=== PATIENT | male | born 1950 | race Caucasian/White ===

== ENCOUNTER 2016-12-01 09:43 | Inpatient (IN) | payer BC, MEDICARE, OTHER ==
[2016-12-01] VITALS (11 sets, daily range): BP systolic 90–141; BP diastolic 50–96
[~2016-12-01] VITALS: Ht 165.1 cm; Wt 85.0 kg
[2016-12-01 10:18] LABS: BASO % 0 % (0-3); EOS % 0 % (0-3); HEMATOCRIT 41.2 % (39.0-53.0); HEMOGLOBIN 14.5 g/dL (13.0-17.5); LYMPH # 0.4 x10^3/uL (1.0-4.8); LYMPH % 3 % (24-48); MEAN CORPUSCULAR HEMOGLOBIN 32 pg (25-35); MEAN CORPUSCULAR HGB CONC 35 g/dL (31-37); MEAN CORPUSCULAR VOLUME 90 fL (79-100); MONO % 7 % (0-9); NEUT % 91 % (31-73); PLATELET COUNT 167 x10^3/uL (140-400); RED BLOOD COUNT 4.59 x10^6/uL (4.30-5.70); RED CELL DISTRIBUTION WIDTH 13.3 % (11.5-14.5); WHITE BLOOD COUNT 16.7 x10^3/uL (4.0-11.0)
--- NOTE | 2016-12-01 10:18 | RAD ---
CT of the head without contrast, 12/01/2016: History: Altered mental status The study is partially compromised by patient motion artifact. There is relative enlargement of the body of the right lateral ventricle. This is probably on a chronic ex vacuo basis due to a prior right cerebral insult. There is no shift of the midline structures. There is no evidence of acute intracranial hemorrhage or mass effect. A small calvarial defect is present in the left frontal region. This may be on a postsurgical or posttraumatic basis. A neoplastic etiology cannot be excluded. IMPRESSION: 1. Enlargement of the body of the right lateral ventricle which is probably chronic. 2. No acute intracranial abnormality is detected. 3. Left frontal calvarial lucency. Note: The findings were called to personnel in the [facility] ER at 10:15 AM on 12/01/2016.
--- NOTE | 2016-12-01 10:26 | RAD ---
Indication change in mental status. Suspect CVA. Protocol exam. A single view of the chest was obtained. No prior imaging of the head is available. Heart size is at the upper limits of normal. There is no congestive heart failure focal infiltrate significant pleural fluid collection or pneumothorax. The bony structures appear grossly intact. IMPRESSION: No acute or focal process seen in the chest
[2016-12-01] MEDS ORDERED: ONDANSETRON PF 4 MG/2 ML VIAL. IV ONE (10:30)
--- NOTE | 2016-12-01 10:31 | EKG ---
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
[2016-12-01 10:40] LABS: CREATININE 1.6 mg/dL (0.7-1.3); GFR 43.6; POTASSIUM 3.5 mmol/L (3.5-5.1)
[2016-12-01 10:47] LABS: INR 1.1 (0.8-1.1); PROTHROMBIN TIME PATIENT 13.7 SEC (11.7-14.0)
[2016-12-01 10:54] LABS: ALBUMIN 3.7 g/dL (3.4-5.0); DIRECT BILIRUBIN 0.3 mg/dL (0.0-0.2); TOTAL BILIRUBIN 1.9 mg/dL (0.2-1.0); TOTAL PROTEIN 7.2 g/dL (6.4-8.2)
[2016-12-01] MEDS ORDERED: IV NORMAL SALINE 1000ML BAG 1,000 ML IV ONE ×2 (11:00→13:00)
[2016-12-01 11:05] LABS: BILIRUBIN,URINE NEGATIVE (NEG); GLUCOSE,URINE NEGATIVE (NEG); NITRITE,URINE NEGATIVE (NEG); PH,URINE 5.5; PROTEIN,URINE NEGATIVE (NEG-TRACE); UROBILINOGEN,URINE 0.2 mg/dL (0.2 mg/dL)
[2016-12-01 11:12] LABS: BARBITURATES NEG (NEG); BENZODIAZEPINES NEG (NEG); CANNABINOIDS NEG (NEG); COCAINE NEG (NEG); METHADONE NEG (NEG); OPIATES NEG (NEG); PHENCYCLIDINE NEG (NEG)
[2016-12-01 11:14] LABS: ETHANOL, URINE NEG (NEG)
[2016-12-01 11:20] LABS: PLT ESTIMATE ADEQUATE (ADEQUATE)
[2016-12-01 11:27] LABS: BACTERIA,URINE 0 /HPF (0-FEW); RBC,URINE OCC /HPF (0-2); SQUAMOUS EPITHELIAL CELL,UR OCC /LPF; WBC,URINE 0 /HPF (0-4)
[2016-12-01 11:28] LABS: BASE EXCESS COOX -3 mmol/L (-3-3); CARBON MONOXIDE 0.8 % (0.0-1.9); HCO3 COOX 21 mmol/L (21-28); METHEMOGLOBIN 0.2 % (0.0-1.9); OXYHEMOGLOBIN 93.9 %; PCO2 COOX 33 mmHg (35-46); PH COOX 7.42 (7.35-7.45); PO2 COOX 77 mmHg (65-108); SAT O2 COOX 95 % (92-99); TOTAL HEMOGLOBIN 13.7 g/dL
[2016-12-01 11:31] LABS: FIO2 COOX 21
--- NOTE | 2016-12-01 11:51 | PHYS DOC ---
Past Medical History Past Medical History: COPD, High Cholesterol, Hypertension, Other Additional Past Medical Histor: polio Past Surgical History: Other Additional Past Surgical Histo: left arm tendon release from polio Alcohol Use: None Drug Use: None Adult General Chief Complaint Chief Complaint: ALTERED MENTAL STATUS HPI HPI Patient is a 66 year old male who presents by EMS for altered mental status. He spoke with his ex- at 8 PM yesterday and asked her for a ride to a colonoscopy today. She showed up at his home at 7 AM this morning and he did not answer his door. She then called EMS who had to break into his home. He was found down on the floor. She states he told her everything was well yesterday. She states he has left upper extremity contracture and weakness that are chronic from polio. She is also states he walks with a limp because his left lower extremity was also affected by polio. The patient does not contribute to history. Review of Systems Review of Systems Unable to obtain secondary to clinical status Current Medications Current Medications Current Medications Medications (Trade) Dose Ordered Sig/Bhumi Start Time Stop Time Status Last Admin Dose Admin Ondansetron HCl 4 mg 4 mg 1X ONCE 12/01/16 10:30 12/01/16 10:31 DC 12/01/16 10:55 4 MG Sodium Chloride (Iv Sodium Chloride 0.9% 1000ml Bag) 1,000 ml @ 1,000 mls/hr 1X ONCE 12/01/16 11:00 12/01/16 11:59 DC 12/01/16 11:02 1,000 MLS/HR Allergies Allergies Allergies Coded Allergies Type Severity Reaction Last Updated Verified Penicillins Allergy Intermediate 12/01/16 Yes Physical Exam Physical Exam Constitutional: Well developed, well nourished, no acute distress, non-toxic appearance. [] HENT: Normocephalic, atraumatic, bilateral TMs normal, oropharynx moist, no oral exudates, nose normal. [] Eyes: PERRLA, EOMI, conjunctiva normal, no discharge. [] Neck: Normal range of motion, no tenderness, supple. [] Cardiovascular: Heart rate regular rhythm [] Lungs & Thorax: Bilateral breath sounds clear to auscultation [] Abdomen: Bowel sounds normal, soft, no tenderness. [] Skin: Warm, dry, no erythema, no rash. [] Back: No tenderness, no CVA tenderness. [] Extremities: No tenderness, passive ROM intact other than some contracture of LUE that is chronic, no edema. [] Neurologic: Localizes pain, opens eyes to pain, some spontaneous movement of RUE and RLE, no voice [] Psychologic: Unable to assess secondary to clinical status. [] Current Patient Data Vital Signs Vital Signs Date Time Temp Pulse Resp B/P Pulse Ox O2 Delivery O2 Flow Rate FiO2 12/01/16 11:30 62 18 154/67 98 12/01/16 10:45 Room Air 12/01/16 09:43 97.8 97.8 Lab Values Laboratory Tests Test 12/01/16 10:00 12/01/16 10:40 12/01/16 10:47 White Blood Count 16.7x10^3/uL (4.0-11.0) H Red Blood Count 4.59x10^6/uL (4.30-5.70) Hemoglobin 14.5g/dL (13.0-17.5) Hematocrit 41.2% (39.0-53.0) Mean Corpuscular Volume 90fL (79-100) Mean Corpuscular Hemoglobin 32pg (25-35) Mean Corpuscular Hemoglobin Concent 35g/dL (31-37) Red Cell Distribution Width 13.3% (11.5-14.5) Platelet Count 167x10^3/uL (140-400) Neutrophils (%) (Auto) 91% (31-73) H Lymphocytes (%) (Auto) 3% (24-48) L Monocytes (%) (Auto) 7% (0-9) Eosinophils (%) (Auto) 0% (0-3) Basophils (%) (Auto) 0% (0-3) Neutrophils # (Auto) 15.1x10^3uL (1.8-7.7) H Lymphocytes # (Auto) 0.4x10^3/uL (1.0-4.8) L Monocytes # (Auto) 1.1x10^3/uL (0.0-1.1) Eosinophils # (Auto) 0.0x10^3/uL (0.0-0.7) Basophils # (Auto) 0.0x10^3/uL (0.0-0.2) Segmented Neutrophils % 84% (35-66) H Band Neutrophils % 4% (0-9) Lymphocytes % 4% (24-48) L Monocytes % 8% (0-10) Platelet Estimate Adequate (ADEQUATE) Prothrombin Time 13.7SEC (11.7-14.0) Prothrombin Time INR 1.1 (0.8-1.1) PTT 25SEC (24-38) Sodium Level 120mmol/L (136-145) *L Potassium Level 3.5mmol/L (3.5-5.1) Chloride Level 84mmol/L (98-107) L Carbon Dioxide Level 24mmol/L (21-32) Anion Gap 12 (6-14) Blood Urea Nitrogen 12mg/dL (8-26) Creatinine 1.6mg/dL (0.7-1.3) H Estimated GFR (Cockcroft-Gault) 43.6 Glucose Level 159mg/dL (70-99) H Serum Osmolality 256mOsm/Kg (279-304) L Lactic Acid Level 2.7mmol/L (0.4-2.0) H Calcium Level 9.0mg/dL (8.5-10.1) Magnesium Level 2.0mg/dL (1.8-2.4) Total Bilirubin 1.9mg/dL (0.2-1.0) H Direct Bilirubin 0.3mg/dL (0.0-0.2) H Aspartate Amino Transferase (AST) 248U/L (15-37) H Alanine Aminotransferase (ALT) 84U/L (16-63) H Alkaline Phosphatase 123U/L (46-116) H Ammonia 12mcmol/L (11-34) Creatine Kinase 74874Z/L (39-308) H Troponin I Quantitative < 0.017ng/mL (0.000-0.055) PX-Llq-N-Type Natriuretic Peptide 613pg/mL (0-124) H Total Protein 7.2g/dL (6.4-8.2) Albumin 3.7g/dL (3.4-5.0) Urine Collection Type U cath Urine Color Yellow Urine Clarity Clear Urine pH 5.5 Urine Specific [place] <=1.005 Urine Protein Negativemg/dL (NEG-TRACE) Urine Glucose (UA) Negativemg/dL (NEG) Urine Ketones (Stick) Negativemg/dL (NEG) Urine Blood Large (NEG) Urine Nitrite Negative (NEG) Urine Bilirubin Negative (NEG) Urine Urobilinogen Dipstick 0.2mg/dL (0.2 mg/dL) Urine Leukocyte Esterase Negative (NEG) Urine RBC Occ/HPF (0-2) Urine WBC 0/HPF (0-4) Urine Squamous Epithelial Cells Occ/LPF Urine Bacteria 0/HPF (0-FEW) Urine Mucus Slight/LPF Urine Opiates Screen Neg (NEG) Urine Methadone Screen Neg (NEG) Urine Barbiturates Neg (NEG) Urine Phencyclidine Screen Neg (NEG) Urine Amphetamine/Methamphetamine Neg (NEG) Urine Benzodiazepines Screen Neg (NEG) Urine Cocaine Screen Neg (NEG) Urine Cannabinoids Screen Neg (NEG) Urine Ethyl Alcohol Neg (NEG) O2 Saturation 95% (92-99) Arterial Blood pH 7.42 (7.35-7.45) Arterial Blood pCO2 at Patient Temp 33mmHg (35-46) L Arterial Blood pO2 at Patient Temp 77mmHg (65-108) Arterial Blood HCO3 21mmol/L (21-28) Arterial Blood Base Excess -3mmol/L (-3-3) Oxyhemoglobin 93.9% Methemoglobin 0.2% (0.0-1.9) Carbon Monoxide, Quantitative 0.8% (0.0-1.9) FiO2 21 Laboratory Tests 12/01/16 10:00 Laboratory Tests 12/01/16 10:00 EKG EKG EKG as interpreted by me as sinus rhythm with right bundle branch block, no ST- T changes, OK 176, QTC 471, no ectopy Radiology/Procedures Radiology/Procedures Chest xray as interpreted by me with no acute cardiopulmonary disease process Head CT without contrast IMPRESSION: 1. Enlargement of the body of the right lateral ventricle which is probably chronic. 2. No acute intracranial abnormality is detected. 3. Left frontal calvarial lucency. Note: The findings were called to personnel in the [facility] ER at 10:15 AM on 12/01/2016. DICTATED and SIGNED BY: NICK ROGERS MD DATE: 12/01/16 4245 Course & Med Decision Making Course & Med Decision Making Pertinent Labs and Imaging studies reviewed. (See chart for details) He has severe altered mental status with a GCS of 8. Discussed his condition with his ex-, who states is his DPOA. She states he would not want to be intubated or have CPR, but would like everything to be done short of that. His laboratory workup reveals leukocytosis and hyponatremia with lactic acidosis and rhabdomyolysis. ABG is unremarkable. Suspect acute hyponatremia in the setting of bowel prep for colonoscopy. Normal saline replacement started as I think he is hypovolemic. Will admit to the ICU for close monitoring of altered mental status and sodium. Discussed care with Dr. Thomson, who will admit. Dragon Disclaimer Dragon Disclaimer This electronic medical record was generated, in whole or in part, using a voice recognition dictation system. Departure Departure Impression: Primary Impression: Altered mental status Additional Impressions: Hyponatremia Lactic acidosis Rhabdomyolysis Disposition: ADMITTED INPATIENT Condition: CRITICAL Referrals: TITO BARRERA MD (PCP) Problem Qualifiers Primary Impression: Altered mental status Altered mental status type: coma Coma depth: [place] coma 9-12 Coma timing : in the field (EMT or ambulance) Qualified Code: R40.2421 - Sonya coma scale score 9-12, in the field [EMT or ambulance] Additional Impressions: Rhabdomyolysis Rhabdomyolysis type: non-traumatic Qualified Code: M62.82 - Rhabdomyolysis Karri STEVENSON MD Dec 01, 2016 11:51
[2016-12-01] MEDS ORDERED: IV NORMAL SALINE 1000ML BAG 1,000 ML IV SCH (12:09)
[2016-12-01] MEDS ORDERED: ONDANSETRON PF 4 MG/2 ML VIAL. IV PRN (12:15)
--- NOTE | 2016-12-01 13:40 | PDOC1 ---
History and Physical Date of Admission Date of Admission DATE: 12/01/16 TIME: 13:32 Identification/Chief Complaint Chief Complaint delirium Source Source: Caregiver, Chart review History of Present Illness History of Present Illness rMr. aceves is a 66 yo old male admit [facility] ER, brought by EMS for altered mental status. His ride arrive to pick him up for sched colonoscopy this AM, he was not arouseable, EMS called He is not following commands in the ER, he does protect is airway and reacts to verbal and painful, but not purposeful He has chronic contractions and he has left upper extremity weakness that are chronic from polio. some chronic leg weakness Past Medical History Past Medical History polio Family History Family History: Family History Unknown Current Problem List Problem List Problems Medical Problems: (1) Altered mental status Status: Acute (2) Hyponatremia Status: Acute (3) Lactic acidosis Status: Acute (4) Mental status change Status: Acute (5) Rhabdomyolysis Status: Acute Problems: Current Medications Current Medications Current Medications Ondansetron HCl 4 mg 4 mg 1X ONCE IV Last administered on 12/01/16 10:55; Start 12/01/16 at 10:30; Stop 12/01/16 at 10:31; Status DC Sodium Chloride (Iv Sodium Chloride 0.9% 1000ml Bag) 1,000 ml @ 1,000 mls/hr 1X ONCE IV Last administered on 12/01/16 11:02; Start 12/01/16 at 11:00; Stop 12/01/16 at 11:59; Status DC Ondansetron HCl 4 mg 4 mg PRN Q8HRS PRN IV NAUSEA/VOMITING; Start 12/01/16 at 12 :15; Stop 12/02/16 at 12:14 Sodium Chloride 1,000 ml @ 150 mls/hr Q6H40M IV ; Start 12/01/16 at 12:09; Stop 12/02/16 at 12:08 Sodium Chloride (Iv Sodium Chloride 0.9% 1000ml Bag) 1,000 ml @ 1,000 mls/hr 1X ONCE IV Last administered on 12/01/16 13:00; Start 12/01/16 at 13:00; Stop 12/01/16 at 13:59 Allergies Allergies: Coded Allergies: Penicillins (Verified Allergy, Intermediate, 12/01/16) ROS Review of System unable, not verbal Physical Exam General: mild distress, Other (not following commands) HEENT: Atraumatic, PERRLA Lungs: Normal air movement Heart: no murmurs Breasts: No erythema or tenderness Abdomen: Normal bowel sounds, Soft, No tenderness (obese) Rectal Exam: not examined Extremities: No clubbing Skin: No rashes, No breakdown, Other (appears dry) Neuro: Normal speech, Normal tone Psych/Mental Status: Other (obtunded, making mastication movements with jaw) Vitals Vitals Vital Signs Date Time Temp Pulse Resp B/P Pulse Ox O2 Delivery O2 Flow Rate FiO2 12/01/16 12:00 62 19 133/67 98 Room Air 12/01/16 09:43 97.8 97.8 Labs Labs Laboratory Tests Test 12/01/16 10:00 12/01/16 10:40 12/01/16 10:47 White Blood Count 16.7x10^3/uL (4.0-11.0) Red Blood Count 4.59x10^6/uL (4.30-5.70) Hemoglobin 14.5g/dL (13.0-17.5) Hematocrit 41.2% (39.0-53.0) Mean Corpuscular Volume 90fL (79-100) Mean Corpuscular Hemoglobin 32pg (25-35) Mean Corpuscular Hemoglobin Concent 35g/dL (31-37) Red Cell Distribution Width 13.3% (11.5-14.5) Platelet Count 167x10^3/uL (140-400) Neutrophils (%) (Auto) 91% (31-73) Lymphocytes (%) (Auto) 3% (24-48) Monocytes (%) (Auto) 7% (0-9) Eosinophils (%) (Auto) 0% (0-3) Basophils (%) (Auto) 0% (0-3) Neutrophils # (Auto) 15.1x10^3uL (1.8-7.7) Lymphocytes # (Auto) 0.4x10^3/uL (1.0-4.8) Monocytes # (Auto) 1.1x10^3/uL (0.0-1.1) Eosinophils # (Auto) 0.0x10^3/uL (0.0-0.7) Basophils # (Auto) 0.0x10^3/uL (0.0-0.2) Segmented Neutrophils % 84% (35-66) Band Neutrophils % 4% (0-9) Lymphocytes % 4% (24-48) Monocytes % 8% (0-10) Platelet Estimate Adequate (ADEQUATE) Prothrombin Time 13.7SEC (11.7-14.0) Prothromb Time International Ratio 1.1 (0.8-1.1) Activated Partial Thromboplast Time 25SEC (24-38) Sodium Level 120mmol/L (136-145) Potassium Level 3.5mmol/L (3.5-5.1) Chloride Level 84mmol/L (98-107) Carbon Dioxide Level 24mmol/L (21-32) Anion Gap 12 (6-14) Blood Urea Nitrogen 12mg/dL (8-26) Creatinine 1.6mg/dL (0.7-1.3) Estimated GFR (Cockcroft-Gault) 43.6 Glucose Level 159mg/dL (70-99) Lactic Acid Level 2.7mmol/L (0.4-2.0) Calcium Level 9.0mg/dL (8.5-10.1) Magnesium Level 2.0mg/dL (1.8-2.4) Total Bilirubin 1.9mg/dL (0.2-1.0) Direct Bilirubin 0.3mg/dL (0.0-0.2) Aspartate Amino Transf (AST/SGOT) 248U/L (15-37) Alanine Aminotransferase (ALT/SGPT) 84U/L (16-63) Alkaline Phosphatase 123U/L (46-116) Ammonia 12mcmol/L (11-34) Creatine Kinase 98761Z/L (39-308) Troponin I Quantitative < 0.017ng/mL (0.000-0.055) LZ-Opq-T-Type Natriuretic Peptide 613pg/mL (0-124) Total Protein 7.2g/dL (6.4-8.2) Albumin 3.7g/dL (3.4-5.0) Urine Collection Type U cath Urine Color Yellow Urine Clarity Clear Urine pH 5.5 Urine Specific [place] <=1.005 Urine Protein Negativemg/dL (NEG-TRACE) Urine Glucose (UA) Negativemg/dL (NEG) Urine Ketones (Stick) Negativemg/dL (NEG) Urine Blood Large (NEG) Urine Nitrite Negative (NEG) Urine Bilirubin Negative (NEG) Urine Urobilinogen Dipstick 0.2mg/dL (0.2 mg/dL) Urine Leukocyte Esterase Negative (NEG) Urine RBC Occ/HPF (0-2) Urine WBC 0/HPF (0-4) Urine Squamous Epithelial Cells Occ/LPF Urine Bacteria 0/HPF (0-FEW) Urine Mucus Slight/LPF Urine Opiates Screen Neg (NEG) Urine Methadone Screen Neg (NEG) Urine Barbiturates Neg (NEG) Urine Phencyclidine Screen Neg (NEG) Urine Amphetamine/Methamphetamine Neg (NEG) Urine Benzodiazepines Screen Neg (NEG) Urine Cocaine Screen Neg (NEG) Urine Cannabinoids Screen Neg (NEG) Urine Ethyl Alcohol Neg (NEG) O2 Saturation 95% (92-99) Arterial Blood pH 7.42 (7.35-7.45) Arterial Blood pCO2 at Patient Temp 33mmHg (35-46) Arterial Blood pO2 at Patient Temp 77mmHg (65-108) Arterial Blood HCO3 21mmol/L (21-28) Arterial Blood Base Excess -3mmol/L (-3-3) Oxyhemoglobin 93.9% Methemoglobin 0.2% (0.0-1.9) Carbon Monoxide, Quantitative 0.8% (0.0-1.9) FiO2 21 Laboratory Tests Test 12/01/16 10:00 12/01/16 10:40 12/01/16 10:47 White Blood Count 16.7x10^3/uL (4.0-11.0) Red Blood Count 4.59x10^6/uL (4.30-5.70) Hemoglobin 14.5g/dL (13.0-17.5) Hematocrit 41.2% (39.0-53.0) Mean Corpuscular Volume 90fL (79-100) Mean Corpuscular Hemoglobin 32pg (25-35) Mean Corpuscular Hemoglobin Concent 35g/dL (31-37) Red Cell Distribution Width 13.3% (11.5-14.5) Platelet Count 167x10^3/uL (140-400) Neutrophils (%) (Auto) 91% (31-73) Lymphocytes (%) (Auto) 3% (24-48) Monocytes (%) (Auto) 7% (0-9) Eosinophils (%) (Auto) 0% (0-3) Basophils (%) (Auto) 0% (0-3) Neutrophils # (Auto) 15.1x10^3uL (1.8-7.7) Lymphocytes # (Auto) 0.4x10^3/uL (1.0-4.8) Monocytes # (Auto) 1.1x10^3/uL (0.0-1.1) Eosinophils # (Auto) 0.0x10^3/uL (0.0-0.7) Basophils # (Auto) 0.0x10^3/uL (0.0-0.2) Segmented Neutrophils % 84% (35-66) Band Neutrophils % 4% (0-9) Lymphocytes % 4% (24-48) Monocytes % 8% (0-10) Platelet Estimate Adequate (ADEQUATE) Prothrombin Time 13.7SEC (11.7-14.0) Prothromb Time International Ratio 1.1 (0.8-1.1) Activated Partial Thromboplast Time 25SEC (24-38) Sodium Level 120mmol/L (136-145) Potassium Level 3.5mmol/L (3.5-5.1) Chloride Level 84mmol/L (98-107) Carbon Dioxide Level 24mmol/L (21-32) Anion Gap 12 (6-14) Blood Urea Nitrogen 12mg/dL (8-26) Creatinine 1.6mg/dL (0.7-1.3) Estimated GFR (Cockcroft-Gault) 43.6 Glucose Level 159mg/dL (70-99) Lactic Acid Level 2.7mmol/L (0.4-2.0) Calcium Level 9.0mg/dL (8.5-10.1) Magnesium Level 2.0mg/dL (1.8-2.4) Total Bilirubin 1.9mg/dL (0.2-1.0) Direct Bilirubin 0.3mg/dL (0.0-0.2) Aspartate Amino Transf (AST/SGOT) 248U/L (15-37) Alanine Aminotransferase (ALT/SGPT) 84U/L (16-63) Alkaline Phosphatase 123U/L (46-116) Ammonia 12mcmol/L (11-34) Creatine Kinase 72901A/L (39-308) Troponin I Quantitative < 0.017ng/mL (0.000-0.055) ZC-Acp-R-Type Natriuretic Peptide 613pg/mL (0-124) Total Protein 7.2g/dL (6.4-8.2) Albumin 3.7g/dL (3.4-5.0) Urine Collection Type U cath Urine Color Yellow Urine Clarity Clear Urine pH 5.5 Urine Specific [place] <=1.005 Urine Protein Negativemg/dL (NEG-TRACE) Urine Glucose (UA) Negativemg/dL (NEG) Urine Ketones (Stick) Negativemg/dL (NEG) Urine Blood Large (NEG) Urine Nitrite Negative (NEG) Urine Bilirubin Negative (NEG) Urine Urobilinogen Dipstick 0.2mg/dL (0.2 mg/dL) Urine Leukocyte Esterase Negative (NEG) Urine RBC Occ/HPF (0-2) Urine WBC 0/HPF (0-4) Urine Squamous Epithelial Cells Occ/LPF Urine Bacteria 0/HPF (0-FEW) Urine Mucus Slight/LPF Urine Opiates Screen Neg (NEG) Urine Methadone Screen Neg (NEG) Urine Barbiturates Neg (NEG) Urine Phencyclidine Screen Neg (NEG) Urine Amphetamine/Methamphetamine Neg (NEG) Urine Benzodiazepines Screen Neg (NEG) Urine Cocaine Screen Neg (NEG) Urine Cannabinoids Screen Neg (NEG) Urine Ethyl Alcohol Neg (NEG) O2 Saturation 95% (92-99) Arterial Blood pH 7.42 (7.35-7.45) Arterial Blood pCO2 at Patient Temp 33mmHg (35-46) Arterial Blood pO2 at Patient Temp 77mmHg (65-108) Arterial Blood HCO3 21mmol/L (21-28) Arterial Blood Base Excess -3mmol/L (-3-3) Oxyhemoglobin 93.9% Methemoglobin 0.2% (0.0-1.9) Carbon Monoxide, Quantitative 0.8% (0.0-1.9) FiO2 21 VTE Prophylaxis Ordered VTE Prophylaxis Devices: No VTE Pharmacological Prophylaxi: Yes Assessment/Plan Assessment/Plan Altered mental status, s/.p GI prep for screening colonoscopy, appears dry on exam ICU admit, consult neuro hyponatremia, hypovolemic, NS given, repeat labs quickly check Urine osm consult Renal Rhabdomyolysis Acute renal failure or CKD 3 obesity AMAN GONZALEZ MD Dec 01, 2016 13:39
[2016-12-01] MEDS ORDERED: MAGNESIUM SULFATE 2GM 50 ML IV PRN ×2 (13:45→15:00)
[2016-12-01] MEDS ORDERED: IV NORMAL SALINE 500ML BAG 500 ML IV PRN (14:00)
--- NOTE | 2016-12-01 14:07 | ACF ---
Admission Forms Criteria MENTAL STATUS CHANGE Clinical Indications for Inpatient Care (Place 'X' for any and all applicable criteria): Ongoing inpatient care may be needed for ANY ONE of the following(1)(2)(3)(5)(6) : [X]I. Suspected serious etiology (eg, medical disorder, DRAW FRAME TENDER event) of mental status change [ ]II. Danger to self or others not manageable at lower level of care [ ]III. Grave disability (eg, inability to perform self care necessary at lower level of care) [ ]IV. Agitation or inappropriate behavior interfering with care for primary condition (eg, attempting to discontinue lines or drains prematurely, unable to cooperate with respiratory care) [ ]V. Delirium [A] [D][E] as described by ANY ONE of the following(26): [ ]a) Delirium due to alcohol or sedative [F] withdrawal [ ]b) Delirium of uncertain etiology that has not responded to appropriate empiric treatment [ ]c) Delirium that prevents performance of a life-sustaining function (eg, feeding or hydrating oneself) [ ]. General contraindications and/or Inappropriate clinical situations for Observational Care in patients with Mental Status Change, when ANY ONE of the following is required: [ ]a) Prediction of prolongation of LOS based on ANY ONE of the following may be considered as a contraindication for observational care 2, 3, 4, 5, 6, 7, 8, 9, 10, 11 [ ]i) Age > 65 yrs. [ ]ii) Patient arriving by ambulance [ ]iii) Patient with high acuity [ ]iv) Patient requiring vital sign monitoring [ ]v) Patient on IV medication [ ]b) Systolic blood pressures 180mmHg 3,12 [ ]c) Patient with altered mental status including delirium and other alteration of consciousness, (3) [ ]d) Patient whose discharge disposition will be to a chcf home or rehabilitation home should not be managed in Emergency Department Observation Unit. CMS rule requires 3 days hospital stay before such placement.3,13 [ ]e) Patient with failure to thrive due to broad array of etiologies 3,16,17 [ ]f) Inability to ambulate 3,14 Extended stay beyond goal length of stay for the primary condition may be needed until ALL of the following are present(3)(5): [ ]a) Underlying medical etiology of mental status change is absent, or has been established and adequately treated [ ]b) Danger to self or others is absent or manageable at lower level of care. [ ]c) Behavior crisis management, including physical or chemical restraints, is not required or available at lower level of car [ ]d) Substance or alcohol withdrawal is absent or manageable at lower level of care. [ ]e) Behavioral symptoms (eg, agitation, somnolence, inappropriate behavior) are absent, or are manageable at lower level of care. The original [facility] content created by [facility] has been revised. The portions of the content which have been revised are identified through the use of italic text or in bold, and [facility] has neither reviewed nor approved the modified material. All other unmodified content is copyright [facility]. Please see references footnoted in the original [facility] edition 2016 Admission Criteria Met?: Yes TIM QUIROZ Dec 01, 2016 14:07
[2016-12-01 14:33] LABS: CREATININE 1.1 mg/dL (0.7-1.3); GFR 67.2; POTASSIUM 3.4 mmol/L (3.5-5.1)
[2016-12-01] MEDS: IV 1/2 NORMAL SALINE 1,000 ML IV SCH (15:00)
[2016-12-01] MEDS ORDERED: POTASSIUM CHLORIDE 20MEQ 50 ML IV PRN ×2 (15:00)
--- NOTE | 2016-12-01 15:12 | PDOC2 ---
DATE OF CONSULT Date of Consult 12/01/2016 REASON FOR CONSULT Reason for Consult Sev HypoNatremia REFERRING PHYSICIAN Referring Provider Dr Thomson CHIEF COMPLAINT Chief Complaint Problems Medical Problems: (1) Altered mental status Status: Acute (2) Hyponatremia Status: Acute (3) Lactic acidosis Status: Acute (4) Mental status change Status: Acute (5) Rhabdomyolysis Status: Acute SOURCE Source EMR HPI HPI as dictated CURRENT MEDICATIONS Current Meds Current Medications Medications (Trade) Dose Ordered Sig/Bhumi Route PRN Reason Start Time Stop Time Status Last Admin Dose Admin Ondansetron HCl 4 mg 4 mg 1X ONCE IV 12/01/16 10:30 12/01/16 10:31 DC 12/01/16 10:55 Sodium Chloride 1,000 ml @ 1,000 mls/hr 1X ONCE IV 12/01/16 11:00 12/01/16 11:59 DC 12/01/16 11:02 Sodium Chloride (Iv Sodium Chloride 0.9% 1000ml Bag) 1,000 ml @ 1,000 mls/hr 1X ONCE IV 12/01/16 13:00 12/01/16 13:59 DC 12/01/16 13:00 Home Meds reviewed as documented ALLERGIES Allergies: Coded Allergies: Penicillins (Verified Allergy, Intermediate, 12/01/16) ROS ROS Unable to obtian duet o AMS VITAL SIGNS Vital Signs VS - Last 72 Hours, by Label Date Time Temp Pulse Resp B/P Pulse Ox O2 Delivery O2 Flow Rate FiO2 12/01/16 12:00 62 19 133/67 98 Room Air 12/01/16 11:45 60 16 136/71 97 12/01/16 11:30 62 18 154/67 98 12/01/16 11:15 60 18 126/78 99 12/01/16 11:00 56 16 122/61 98 12/01/16 10:45 56 18 122/71 99 Room Air 12/01/16 10:30 60 18 129/74 98 12/01/16 10:15 60 20 126/70 99 12/01/16 10:00 58 18 122/64 96 Room Air 12/01/16 09:43 97.8 60 18 132/63 99 Room Air 97.8 PHYSICAL EXAM Physical Exam General Appearance: Sleepy and unable to arouse Oriented x 0 In no Distress Eyes: VIsion Unchanged Conjunctiva Normal EN: No EN Drainage Mucous Memb. dryish Neck: no JVD no JVP Supple no Thyromegaly CVS: S1 S2 no Murmur No Gallop No Rub no Edema Resp: no Rales no Rhonchi no Acc. Muscle use GI: BAS +ve NO Bruit Non Tender Non Distended : no CVA tenderness; no Suprapubic Tenderness SKIN: ? Ch Rashes Breast Exam deferred Mu.Sk: Adequate ROM no Muscle Atrophy Heme: Unable to palpate Obvious LAD no palp Splenomegaly NEURO: ? Left Upper ext contracture, AMS, No Asterixis, Psych: Unable to assess duet o AMS ASSESSMENT/PLAN Assessment/Plan Sev (presumably Acute) Hyponatremia - associated with bowel PreP? ; Home list of meds NA currently Polydipsia cannot be ruled out. HypoKalemia - replacement per sliding scale Rhabdomyolysis - suspect due to Sz (from Hypnatremia) AMS - ? Post-ictal Adrienne due to Rhabdo - now better already LABS Labs: Laboratory Tests Test 12/01/16 10:00 12/01/16 10:40 12/01/16 10:47 12/01/16 13:55 White Blood Count 16.7x10^3/uL (4.0-11.0) Red Blood Count 4.59x10^6/uL (4.30-5.70) Hemoglobin 14.5g/dL (13.0-17.5) Hematocrit 41.2% (39.0-53.0) Mean Corpuscular Volume 90fL (79-100) Mean Corpuscular Hemoglobin 32pg (25-35) Mean Corpuscular Hemoglobin Concent 35g/dL (31-37) Red Cell Distribution Width 13.3% (11.5-14.5) Platelet Count 167x10^3/uL (140-400) Neutrophils (%) (Auto) 91% (31-73) Lymphocytes (%) (Auto) 3% (24-48) Monocytes (%) (Auto) 7% (0-9) Eosinophils (%) (Auto) 0% (0-3) Basophils (%) (Auto) 0% (0-3) Neutrophils # (Auto) 15.1x10^3uL (1.8-7.7) Lymphocytes # (Auto) 0.4x10^3/uL (1.0-4.8) Monocytes # (Auto) 1.1x10^3/uL (0.0-1.1) Eosinophils # (Auto) 0.0x10^3/uL (0.0-0.7) Basophils # (Auto) 0.0x10^3/uL (0.0-0.2) Segmented Neutrophils % 84% (35-66) Band Neutrophils % 4% (0-9) Lymphocytes % 4% (24-48) Monocytes % 8% (0-10) Platelet Estimate Adequate (ADEQUATE) Prothrombin Time 13.7SEC (11.7-14.0) Prothromb Time International Ratio 1.1 (0.8-1.1) Activated Partial Thromboplast Time 25SEC (24-38) Sodium Level 120mmol/L (136-145) 128mmol/L (136-145) Chloride Level 84mmol/L (98-107) 94mmol/L (98-107) Carbon Dioxide Level 24mmol/L (21-32) 24mmol/L (21-32) Anion Gap 12 (6-14) 10 (6-14) Blood Urea Nitrogen 12mg/dL (8-26) 12mg/dL (8-26) Estimated GFR (Cockcroft-Gault) 43.6 67.2 Glucose Level 159mg/dL (70-99) 126mg/dL (70-99) Lactic Acid Level 2.7mmol/L (0.4-2.0) 1.2mmol/L (0.4-2.0) Calcium Level 9.0mg/dL (8.5-10.1) 8.0mg/dL (8.5-10.1) Total Bilirubin 1.9mg/dL (0.2-1.0) Direct Bilirubin 0.3mg/dL (0.0-0.2) Aspartate Amino Transf (AST/SGOT) 248U/L (15-37) Alkaline Phosphatase 123U/L (46-116) Ammonia 12mcmol/L (11-34) Creatine Kinase 15443U/L (39-308) Troponin I Quantitative < 0.017ng/mL (0.000-0.055) Total Protein 7.2g/dL (6.4-8.2) Albumin 3.7g/dL (3.4-5.0) Urine Collection Type U cath Urine Color Yellow Urine Clarity Clear Urine pH 5.5 Urine Specific [place] <=1.005 Urine Protein Negativemg/dL (NEG-TRACE) Urine Glucose (UA) Negativemg/dL (NEG) Urine Ketones (Stick) Negativemg/dL (NEG) Urine Blood Large (NEG) Urine Nitrite Negative (NEG) Urine Bilirubin Negative (NEG) Urine Urobilinogen Dipstick 0.2mg/dL (0.2 mg/dL) Urine Leukocyte Esterase Negative (NEG) Urine RBC Occ/HPF (0-2) Urine WBC 0/HPF (0-4) Urine Squamous Epithelial Cells Occ/LPF Urine Bacteria 0/HPF (0-FEW) Urine Mucus Slight/LPF Urine Opiates Screen Neg (NEG) Urine Methadone Screen Neg (NEG) Urine Barbiturates Neg (NEG) Urine Phencyclidine Screen Neg (NEG) Urine Amphetamine/Methamphetamine Neg (NEG) Urine Benzodiazepines Screen Neg (NEG) Urine Cocaine Screen Neg (NEG) Urine Cannabinoids Screen Neg (NEG) Urine Ethyl Alcohol Neg (NEG) O2 Saturation 95% (92-99) Arterial Blood pH 7.42 (7.35-7.45) Arterial Blood pCO2 at Patient Temp 33mmHg (35-46) Arterial Blood pO2 at Patient Temp 77mmHg (65-108) Arterial Blood HCO3 21mmol/L (21-28) Arterial Blood Base Excess -3mmol/L (-3-3) Oxyhemoglobin 93.9% Methemoglobin 0.2% (0.0-1.9) Carbon Monoxide, Quantitative 0.8% (0.0-1.9) FiO2 21 Uric Acid 7.0mg/dL (3.5-7.2) JAYSON PATEL MD Dec 01, 2016 15:12
[2016-12-01] MEDS: IV DEXTROSE 5% 1,000 ML IV SCH ×2 (15:15→23:52)
[2016-12-01] MEDS: ENOXAPARIN 40 MG/0.4 ML DISP.SYRIN. SQ SCH (15:51)
[2016-12-01] MEDS: POTASSIUM CHLORIDE 10MEQ 100 ML IV SCH ×2 (15:51→17:09)
[2016-12-01] MEDS ORDERED: LORAZEPAM 1 MG TABLET. PO PRN (18:15)
[2016-12-01] MEDS ORDERED: LORAZEPAM 2 MG/ML VIAL IV PRN (18:15)
[2016-12-01] MEDS ORDERED: DESMOPRESSIN 4 MCG/ML AMPUL. IV SCH (21:30)
[2016-12-02] VITALS (16 sets, daily range): BP systolic 96–140; BP diastolic 50–78
[2016-12-02] MEDS: IV 1/2 NORMAL SALINE 1,000 ML IV SCH ×3 (04:20→19:08)
[2016-12-02 04:43] LABS: CALCIUM 8.4 mg/dL (8.5-10.1); CREATININE 0.8 mg/dL (0.7-1.3); PHOSPHORUS 2.3 mg/dL (2.6-4.7); POTASSIUM 3.7 mmol/L (3.5-5.1)
[2016-12-02 04:45] LABS: ALBUMIN 3.1 g/dL (3.4-5.0); DIRECT BILIRUBIN 0.3 mg/dL (0.0-0.2); TOTAL BILIRUBIN 0.9 mg/dL (0.2-1.0); TOTAL PROTEIN 5.6 g/dL (6.4-8.2)
[2016-12-02 04:54] LABS: BASO % 0 % (0-3); EOS % 0 % (0-3); HEMATOCRIT 37.3 % (39.0-53.0); LYMPH # 0.6 x10^3/uL (1.0-4.8); LYMPH % 5 % (24-48); MEAN CORPUSCULAR HEMOGLOBIN 32 pg (25-35); MEAN CORPUSCULAR HGB CONC 35 g/dL (31-37); MEAN CORPUSCULAR VOLUME 92 fL (79-100); MONO % 9 % (0-9); NEUT % 86 % (31-73); PLATELET COUNT 146 x10^3/uL (140-400); RED BLOOD COUNT 4.06 x10^6/uL (4.30-5.70); RED CELL DISTRIBUTION WIDTH 13.4 % (11.5-14.5); WHITE BLOOD COUNT 10.9 x10^3/uL (4.0-11.0)
[2016-12-02 04:58] LABS: MAGNESIUM 2.2 mg/dL (1.8-2.4)
--- NOTE | 2016-12-02 07:55 | CONS ---
DATE OF CONSULTATION: 12/01/2016 PRIMARY PHYSICIAN: Dr. Thomson. REASON FOR CONSULTATION: Hyponatremia. HISTORY OF PRESENT ILLNESS: The patient is a 66-year-old gentleman, who was preparing for a colonoscopy at home. His ex- was supposed to take him to the appointment. When she arrived at home at 7:00 a.m. this morning, he did not answer his door. She then called EMS, who broke into his home, found him down on the floor, and he was transported here. At baseline, he is known to walk with a limp, with weakness/contractures on his left side upper and lower extremities. At presentation here, he was noted to have a sodium of 120, a potassium of 3.5, creatinine 1.6, and a CK of almost 13,000. He was given 2-1/2 liters of normal saline as reported to me. Blood pressures were good. He remains altered at this time. He is now in the ICU for further evaluation. No documented seizure per se that we know of. His sodium has corrected to [address] scan of his brain has not showed significant brain edema per se. His potassium was also low. Initially his urine output was minimal, but with IV fluid boluses, his urine output has improved. PAST MEDICAL HISTORY: As available from his electronic records, positive for COPD, high cholesterol, hypertension, polio on his left upper arm, and surgery for tendon release in left arm. MEDICATIONS: Home list of medications are not available. FAMILY HISTORY: Unable to be obtained from the patient due to altered mental status. SOCIAL HISTORY: Apparently given history of ex- coming to pick him up. Tobacco and alcohol use is unable to be obtained. REVIEW OF SYSTEMS: Unable to be obtained. For rest of details, see electronic records. JAYSON PATEL MD DR: ARIAN/chloé JOB#: [id number] / [id number]
--- NOTE | 2016-12-02 08:19 | PDOC ---
SUBJECTIVE ROS F/up HypoNatremia/ Rhabdo Needed to be sedated last pm; now is back to baseline and asking to go home CVS: no Orthopnea, no CP RESP: no SOB, no JOSEPH GI: no Nausea, no Vomiting : n Dysuria, no Urgency OBJECTIVE Vital Signs Vital Signs Date Time Temp Pulse Resp B/P Pulse Ox O2 Delivery O2 Flow Rate FiO2 12/02/16 06:00 69 16 129/78 96 Room Air 12/02/16 04:00 98.3 98.3 I & 0 Intake and Output 12/02/16 07:00 Intake Total 3411.8 ml Output Total 6617 ml Balance -3205.2 ml Intake IV Total 3411.8 ml Output Urine Total 6617 ml # Voids 2 PHYSICAL EXAM Physical Exam General Appearance: Sleepy and unable to arouse Oriented x 0 In no Distress Eyes: VIsion Unchanged Conjunctiva Normal EN: No EN Drainage Mucous Memb. dryish Neck: no JVD no JVP Supple no Thyromegaly CVS: S1 S2 no Murmur No Gallop No Rub no Edema Resp: no Rales no Rhonchi no Acc. Muscle use GI: BAS +ve NO Bruit Non Tender Non Distended : no CVA tenderness; no Suprapubic Tenderness ASSESSMENT/PLAN Assessment/Plan Sev (presumably Acute) Hyponatremia - associated with bowel PreP? ; Home list of meds NA currently Polydipsia cannot be ruled out. Had significant Polyuria and need to be changed to D5W and 1 dose of DDAVP also HypoKalemia - replaced per sliding scale Rhabdomyolysis - suspect due to Sz (from Hyponatremia) - CK trending down - will ct IVF for now AMS - ? Post-ictal - improved Low Phos (despite Rhabdo) - IV Kphos x 1 COMMENT/RELEVANT DATA Meds Current Medications Medications (Trade) Dose Ordered Sig/Bhumi Start Time Stop Time Status Last Admin Dose Admin Desmopressin Acetate (Ddavp) 1 mcg BID 12/01/16 21:30 12/01/16 21:24 1 MCG Dextrose 1,000 ml @ 100 mls/hr Q10H 12/01/16 15:15 12/01/16 23:52 100 MLS/HR Enoxaparin Sodium (Lovenox Per Pharmacy Prophylaxis Dosing) 1 each PRN DAILY PRN 12/01/16 13:45 Enoxaparin Sodium 40 mg 40 mg Q24H 12/01/16 14:00 12/01/16 15:51 40 MG Lorazepam (Ativan) 1 mg PRN Q4HRS PRN 12/01/16 18:15 12/01/16 18:16 1 MG Magnesium Sulfate/ Dextrose 50 ml @ 25 mls/hr PRN DAILY PRN 12/01/16 15:00 Ondansetron HCl (Zofran) 4 mg 1X ONCE 12/01/16 10:30 12/01/16 10:31 DC 12/01/16 10:55 4 MG Ondansetron HCl 4 mg 4 mg PRN Q8HRS PRN 12/01/16 12:15 12/02/16 12:14 Potassium Chloride 50 ml @ 50 mls/hr PRN Q2HR PRN 12/01/16 15:00 Sodium Chloride 1,000 ml @ 75 mls/hr [id number] 12/01/16 15:00 12/02/16 04:53 DC Sodium Chloride (Iv Sodium Chloride 0.9% 1000ml Bag) 1,000 ml @ 1,000 mls/hr 1X ONCE 12/01/16 13:00 12/01/16 13:59 DC 12/01/16 13:00 1,000 MLS/HR Lab Laboratory Tests Test 12/01/16 10:00 12/01/16 10:40 12/01/16 10:47 12/01/16 13:15 White Blood Count 16.7x10^3/uL (4.0-11.0) Red Blood Count 4.59x10^6/uL (4.30-5.70) Hemoglobin 14.5g/dL (13.0-17.5) Hematocrit 41.2% (39.0-53.0) Mean Corpuscular Volume 90fL (79-100) Mean Corpuscular Hemoglobin 32pg (25-35) Mean Corpuscular Hemoglobin Concent 35g/dL (31-37) Red Cell Distribution Width 13.3% (11.5-14.5) Platelet Count 167x10^3/uL (140-400) Neutrophils (%) (Auto) 91% (31-73) Lymphocytes (%) (Auto) 3% (24-48) Monocytes (%) (Auto) 7% (0-9) Eosinophils (%) (Auto) 0% (0-3) Basophils (%) (Auto) 0% (0-3) Neutrophils # (Auto) 15.1x10^3uL (1.8-7.7) Lymphocytes # (Auto) 0.4x10^3/uL (1.0-4.8) Monocytes # (Auto) 1.1x10^3/uL (0.0-1.1) Eosinophils # (Auto) 0.0x10^3/uL (0.0-0.7) Basophils # (Auto) 0.0x10^3/uL (0.0-0.2) Segmented Neutrophils % 84% (35-66) Band Neutrophils % 4% (0-9) Lymphocytes % 4% (24-48) Monocytes % 8% (0-10) Platelet Estimate Adequate (ADEQUATE) Prothrombin Time 13.7SEC (11.7-14.0) Prothromb Time International Ratio 1.1 (0.8-1.1) Activated Partial Thromboplast Time 25SEC (24-38) Sodium Level 120mmol/L (136-145) Potassium Level 3.5mmol/L (3.5-5.1) Chloride Level 84mmol/L (98-107) Carbon Dioxide Level 24mmol/L (21-32) Anion Gap 12 (6-14) Blood Urea Nitrogen 12mg/dL (8-26) Creatinine 1.6mg/dL (0.7-1.3) Estimated GFR (Cockcroft-Gault) 43.6 Glucose Level 159mg/dL (70-99) Serum Osmolality 256mOsm/Kg (279-304) Lactic Acid Level 2.7mmol/L (0.4-2.0) Calcium Level 9.0mg/dL (8.5-10.1) Magnesium Level 2.0mg/dL (1.8-2.4) Total Bilirubin 1.9mg/dL (0.2-1.0) Direct Bilirubin 0.3mg/dL (0.0-0.2) Aspartate Amino Transf (AST/SGOT) 248U/L (15-37) Alanine Aminotransferase (ALT/SGPT) 84U/L (16-63) Alkaline Phosphatase 123U/L (46-116) Ammonia 12mcmol/L (11-34) Creatine Kinase 88865Y/L (39-308) Troponin I Quantitative < 0.017ng/mL (0.000-0.055) [place]-Vel-I-Type Natriuretic Peptide 613pg/mL (0-124) Total Protein 7.2g/dL (6.4-8.2) Albumin 3.7g/dL (3.4-5.0) Urine Collection Type U cath Urine Color Yellow Urine Clarity Clear Urine pH 5.5 Urine Specific [place] <=1.005 Urine Protein Negativemg/dL (NEG-TRACE) Urine Glucose (UA) Negativemg/dL (NEG) Urine Ketones (Stick) Negativemg/dL (NEG) Urine Blood Large (NEG) Urine Nitrite Negative (NEG) Urine Bilirubin Negative (NEG) Urine Urobilinogen Dipstick 0.2mg/dL (0.2 mg/dL) Urine Leukocyte Esterase Negative (NEG) Urine RBC Occ/HPF (0-2) Urine WBC 0/HPF (0-4) Urine Squamous Epithelial Cells Occ/LPF Urine Bacteria 0/HPF (0-FEW) Urine Mucus Slight/LPF Urine Opiates Screen Neg (NEG) Urine Methadone Screen Neg (NEG) Urine Barbiturates Neg (NEG) Urine Phencyclidine Screen Neg (NEG) Urine Amphetamine/Methamphetamine Neg (NEG) Urine Benzodiazepines Screen Neg (NEG) Urine Cocaine Screen Neg (NEG) Urine Cannabinoids Screen Neg (NEG) Urine Ethyl Alcohol Neg (NEG) O2 Saturation 95% (92-99) Arterial Blood pH 7.42 (7.35-7.45) Arterial Blood pCO2 at Patient Temp 33mmHg (35-46) Arterial Blood pO2 at Patient Temp 77mmHg (65-108) Arterial Blood HCO3 21mmol/L (21-28) Arterial Blood Base Excess -3mmol/L (-3-3) Oxyhemoglobin 93.9% Methemoglobin 0.2% (0.0-1.9) Carbon Monoxide, Quantitative 0.8% (0.0-1.9) FiO2 21 Nasal Screen MRSA (PCR) Negative (Negative) Test 12/01/16 13:55 12/01/16 15:50 12/01/16 17:05 12/01/16 20:00 Sodium Level 128mmol/L (136-145) 131mmol/L (136-145) 134mmol/L (136-145) Potassium Level 3.4mmol/L (3.5-5.1) Chloride Level 94mmol/L (98-107) Carbon Dioxide Level 24mmol/L (21-32) Anion Gap 10 (6-14) Blood Urea Nitrogen 12mg/dL (8-26) Creatinine 1.1mg/dL (0.7-1.3) Estimated GFR (Cockcroft-Gault) 67.2 Glucose Level 126mg/dL (70-99) Lactic Acid Level 1.2mmol/L (0.4-2.0) Uric Acid 7.0mg/dL (3.5-7.2) Calcium Level 8.0mg/dL (8.5-10.1) Urine Random Sodium <20mmol/L (Not Estab.) Test 12/01/16 22:10 12/02/16 00:20 12/02/16 04:20 Potassium Level 3.7mmol/L (3.5-5.1) 3.7mmol/L (3.5-5.1) Sodium Level 136mmol/L (136-145) 134mmol/L (136-145) White Blood Count 10.9x10^3/uL (4.0-11.0) Red Blood Count 4.06x10^6/uL (4.30-5.70) Hemoglobin 13.0g/dL (13.0-17.5) Hematocrit 37.3% (39.0-53.0) Mean Corpuscular Volume 92fL (79-100) Mean Corpuscular Hemoglobin 32pg (25-35) Mean Corpuscular Hemoglobin Concent 35g/dL (31-37) Red Cell Distribution Width 13.4% (11.5-14.5) Platelet Count 146x10^3/uL (140-400) Neutrophils (%) (Auto) 86% (31-73) Lymphocytes (%) (Auto) 5% (24-48) Monocytes (%) (Auto) 9% (0-9) Eosinophils (%) (Auto) 0% (0-3) Basophils (%) (Auto) 0% (0-3) Neutrophils # (Auto) 9.3x10^3uL (1.8-7.7) Lymphocytes # (Auto) 0.6x10^3/uL (1.0-4.8) Monocytes # (Auto) 0.9x10^3/uL (0.0-1.1) Eosinophils # (Auto) 0.0x10^3/uL (0.0-0.7) Basophils # (Auto) 0.0x10^3/uL (0.0-0.2) Chloride Level 101mmol/L (98-107) Carbon Dioxide Level 25mmol/L (21-32) Anion Gap 8 (6-14) Blood Urea Nitrogen 8mg/dL (8-26) Creatinine 0.8mg/dL (0.7-1.3) Estimated GFR (Cockcroft-Gault) 97.0 Glucose Level 133mg/dL (70-99) Lactic Acid Level 1.0mmol/L (0.4-2.0) Calcium Level 8.4mg/dL (8.5-10.1) Phosphorus Level 2.3mg/dL (2.6-4.7) Magnesium Level 2.2mg/dL (1.8-2.4) Total Bilirubin 0.9mg/dL (0.2-1.0) Direct Bilirubin 0.3mg/dL (0.0-0.2) Aspartate Amino Transf (AST/SGOT) 239U/L (15-37) Alanine Aminotransferase (ALT/SGPT) 94U/L (16-63) Alkaline Phosphatase 95U/L (46-116) Creatine Kinase 7558U/L (39-308) Total Protein 5.6g/dL (6.4-8.2) Albumin 3.1g/dL (3.4-5.0) JAYSON PATEL MD Dec 02, 2016 08:18
[2016-12-02] MEDS: POTASSIUM PHOSPHATE DIBASIC 13.6 MMOL in IV NORMAL SALINE 100ML 100 ML IV SCH ×3 (09:42→13:48)
--- NOTE | 2016-12-02 10:30 | PDOC ---
PROGRESS NOTES Chief Complaint Chief Complaint Hyponatremia Hypokalemia Rhabdomyolysis AMS Plan AMS Resolved Physically weak, need PT./OT [place] CPK and electrolytes Replace electrolytes, supportive care. History of Present Illness History of Present Illness no fever no chills no chest pain Vitals Vitals Vital Signs Date Time Temp Pulse Resp B/P Pulse Ox O2 Delivery O2 Flow Rate FiO2 12/02/16 06:00 69 16 129/78 96 Room Air 12/02/16 04:00 98.3 98.3 Physical Exam General: Alert, Oriented X3, mild distress, Other Heart: Normal S1, Normal S2 Lungs: Clear Abdomen: Normal bowel sounds, Soft, No tenderness (obese) Extremities: No clubbing Skin: No rashes, No breakdown, Other Labs LABS Laboratory Tests Test 12/01/16 10:40 12/01/16 10:47 12/01/16 13:15 12/01/16 13:55 Urine Collection Type U cath Urine Color Yellow Urine Clarity Clear Urine pH 5.5 Urine Specific [place] <=1.005 Urine Protein Negativemg/dL (NEG-TRACE) Urine Glucose (UA) Negativemg/dL (NEG) Urine Ketones (Stick) Negativemg/dL (NEG) Urine Blood Large (NEG) Urine Nitrite Negative (NEG) Urine Bilirubin Negative (NEG) Urine Urobilinogen Dipstick 0.2mg/dL (0.2 mg/dL) Urine Leukocyte Esterase Negative (NEG) Urine RBC Occ/HPF (0-2) Urine WBC 0/HPF (0-4) Urine Squamous Epithelial Cells Occ/LPF Urine Bacteria 0/HPF (0-FEW) Urine Mucus Slight/LPF Urine Opiates Screen Neg (NEG) Urine Methadone Screen Neg (NEG) Urine Barbiturates Neg (NEG) Urine Phencyclidine Screen Neg (NEG) Urine Amphetamine/Methamphetamine Neg (NEG) Urine Benzodiazepines Screen Neg (NEG) Urine Cocaine Screen Neg (NEG) Urine Cannabinoids Screen Neg (NEG) Urine Ethyl Alcohol Neg (NEG) O2 Saturation 95% (92-99) Arterial Blood pH 7.42 (7.35-7.45) Arterial Blood pCO2 at Patient Temp 33mmHg (35-46) Arterial Blood pO2 at Patient Temp 77mmHg (65-108) Arterial Blood HCO3 21mmol/L (21-28) Arterial Blood Base Excess -3mmol/L (-3-3) Oxyhemoglobin 93.9% Methemoglobin 0.2% (0.0-1.9) Carbon Monoxide, Quantitative 0.8% (0.0-1.9) FiO2 21 Nasal Screen MRSA (PCR) Negative (Negative) Sodium Level 128mmol/L (136-145) Potassium Level 3.4mmol/L (3.5-5.1) Chloride Level 94mmol/L (98-107) Carbon Dioxide Level 24mmol/L (21-32) Anion Gap 10 (6-14) Blood Urea Nitrogen 12mg/dL (8-26) Creatinine 1.1mg/dL (0.7-1.3) Estimated GFR (Cockcroft-Gault) 67.2 Glucose Level 126mg/dL (70-99) Lactic Acid Level 1.2mmol/L (0.4-2.0) Uric Acid 7.0mg/dL (3.5-7.2) Calcium Level 8.0mg/dL (8.5-10.1) Test 12/01/16 15:50 12/01/16 17:05 12/01/16 20:00 12/01/16 22:10 Sodium Level 131mmol/L (136-145) 134mmol/L (136-145) Urine Random Sodium <20mmol/L (Not Estab.) Potassium Level 3.7mmol/L (3.5-5.1) Test 12/02/16 00:20 12/02/16 04:20 12/02/16 07:55 Sodium Level 136mmol/L (136-145) 134mmol/L (136-145) 133mmol/L (136-145) White Blood Count 10.9x10^3/uL (4.0-11.0) Red Blood Count 4.06x10^6/uL (4.30-5.70) Hemoglobin 13.0g/dL (13.0-17.5) Hematocrit 37.3% (39.0-53.0) Mean Corpuscular Volume 92fL (79-100) Mean Corpuscular Hemoglobin 32pg (25-35) Mean Corpuscular Hemoglobin Concent 35g/dL (31-37) Red Cell Distribution Width 13.4% (11.5-14.5) Platelet Count 146x10^3/uL (140-400) Neutrophils (%) (Auto) 86% (31-73) Lymphocytes (%) (Auto) 5% (24-48) Monocytes (%) (Auto) 9% (0-9) Eosinophils (%) (Auto) 0% (0-3) Basophils (%) (Auto) 0% (0-3) Neutrophils # (Auto) 9.3x10^3uL (1.8-7.7) Lymphocytes # (Auto) 0.6x10^3/uL (1.0-4.8) Monocytes # (Auto) 0.9x10^3/uL (0.0-1.1) Eosinophils # (Auto) 0.0x10^3/uL (0.0-0.7) Basophils # (Auto) 0.0x10^3/uL (0.0-0.2) Potassium Level 3.7mmol/L (3.5-5.1) Chloride Level 101mmol/L (98-107) Carbon Dioxide Level 25mmol/L (21-32) Anion Gap 8 (6-14) Blood Urea Nitrogen 8mg/dL (8-26) Creatinine 0.8mg/dL (0.7-1.3) Estimated GFR (Cockcroft-Gault) 97.0 Glucose Level 133mg/dL (70-99) Lactic Acid Level 1.0mmol/L (0.4-2.0) Calcium Level 8.4mg/dL (8.5-10.1) Phosphorus Level 2.3mg/dL (2.6-4.7) Magnesium Level 2.2mg/dL (1.8-2.4) Total Bilirubin 0.9mg/dL (0.2-1.0) Direct Bilirubin 0.3mg/dL (0.0-0.2) Aspartate Amino Transf (AST/SGOT) 239U/L (15-37) Alanine Aminotransferase (ALT/SGPT) 94U/L (16-63) Alkaline Phosphatase 95U/L (46-116) Creatine Kinase 7558U/L (39-308) Total Protein 5.6g/dL (6.4-8.2) Albumin 3.1g/dL (3.4-5.0) Assessment and Plan Assessmemt and Plan Problems Medical Problems: (1) Altered mental status Status: Acute (2) Hyponatremia Status: Acute (3) Lactic acidosis Status: Acute (4) Mental status change Status: Acute (5) Rhabdomyolysis Status: Acute Problems: Comment Review of Relevant I have reviewed the following items luis (where applicable) has been applied. Labs Laboratory Tests Test 12/01/16 10:00 12/01/16 10:40 12/01/16 10:47 12/01/16 13:15 White Blood Count 16.7x10^3/uL (4.0-11.0) Red Blood Count 4.59x10^6/uL (4.30-5.70) Hemoglobin 14.5g/dL (13.0-17.5) Hematocrit 41.2% (39.0-53.0) Mean Corpuscular Volume 90fL (79-100) Mean Corpuscular Hemoglobin 32pg (25-35) Mean Corpuscular Hemoglobin Concent 35g/dL (31-37) Red Cell Distribution Width 13.3% (11.5-14.5) Platelet Count 167x10^3/uL (140-400) Neutrophils (%) (Auto) 91% (31-73) Lymphocytes (%) (Auto) 3% (24-48) Monocytes (%) (Auto) 7% (0-9) Eosinophils (%) (Auto) 0% (0-3) Basophils (%) (Auto) 0% (0-3) Neutrophils # (Auto) 15.1x10^3uL (1.8-7.7) Lymphocytes # (Auto) 0.4x10^3/uL (1.0-4.8) Monocytes # (Auto) 1.1x10^3/uL (0.0-1.1) Eosinophils # (Auto) 0.0x10^3/uL (0.0-0.7) Basophils # (Auto) 0.0x10^3/uL (0.0-0.2) Segmented Neutrophils % 84% (35-66) Band Neutrophils % 4% (0-9) Lymphocytes % 4% (24-48) Monocytes % 8% (0-10) Platelet Estimate Adequate (ADEQUATE) Prothrombin Time 13.7SEC (11.7-14.0) Prothromb Time International Ratio 1.1 (0.8-1.1) Activated Partial Thromboplast Time 25SEC (24-38) Sodium Level 120mmol/L (136-145) Potassium Level 3.5mmol/L (3.5-5.1) Chloride Level 84mmol/L (98-107) Carbon Dioxide Level 24mmol/L (21-32) Anion Gap 12 (6-14) Blood Urea Nitrogen 12mg/dL (8-26) Creatinine 1.6mg/dL (0.7-1.3) Estimated GFR (Cockcroft-Gault) 43.6 Glucose Level 159mg/dL (70-99) Serum Osmolality 256mOsm/Kg (279-304) Lactic Acid Level 2.7mmol/L (0.4-2.0) Calcium Level 9.0mg/dL (8.5-10.1) Magnesium Level 2.0mg/dL (1.8-2.4) Total Bilirubin 1.9mg/dL (0.2-1.0) Direct Bilirubin 0.3mg/dL (0.0-0.2) Aspartate Amino Transf (AST/SGOT) 248U/L (15-37) Alanine Aminotransferase (ALT/SGPT) 84U/L (16-63) Alkaline Phosphatase 123U/L (46-116) Ammonia 12mcmol/L (11-34) Creatine Kinase 21132W/L (39-308) Troponin I Quantitative < 0.017ng/mL (0.000-0.055) PQ-Dic-M-Type Natriuretic Peptide 613pg/mL (0-124) Total Protein 7.2g/dL (6.4-8.2) Albumin 3.7g/dL (3.4-5.0) Urine Collection Type U cath Urine Color Yellow Urine Clarity Clear Urine pH 5.5 Urine Specific [place] <=1.005 Urine Protein Negativemg/dL (NEG-TRACE) Urine Glucose (UA) Negativemg/dL (NEG) Urine Ketones (Stick) Negativemg/dL (NEG) Urine Blood Large (NEG) Urine Nitrite Negative (NEG) Urine Bilirubin Negative (NEG) Urine Urobilinogen Dipstick 0.2mg/dL (0.2 mg/dL) Urine Leukocyte Esterase Negative (NEG) Urine RBC Occ/HPF (0-2) Urine WBC 0/HPF (0-4) Urine Squamous Epithelial Cells Occ/LPF Urine Bacteria 0/HPF (0-FEW) Urine Mucus Slight/LPF Urine Opiates Screen Neg (NEG) Urine Methadone Screen Neg (NEG) Urine Barbiturates Neg (NEG) Urine Phencyclidine Screen Neg (NEG) Urine Amphetamine/Methamphetamine Neg (NEG) Urine Benzodiazepines Screen Neg (NEG) Urine Cocaine Screen Neg (NEG) Urine Cannabinoids Screen Neg (NEG) Urine Ethyl Alcohol Neg (NEG) O2 Saturation 95% (92-99) Arterial Blood pH 7.42 (7.35-7.45) Arterial Blood pCO2 at Patient Temp 33mmHg (35-46) Arterial Blood pO2 at Patient Temp 77mmHg (65-108) Arterial Blood HCO3 21mmol/L (21-28) Arterial Blood Base Excess -3mmol/L (-3-3) Oxyhemoglobin 93.9% Methemoglobin 0.2% (0.0-1.9) Carbon Monoxide, Quantitative 0.8% (0.0-1.9) FiO2 21 Nasal Screen MRSA (PCR) Negative (Negative) Test 12/01/16 13:55 12/01/16 15:50 12/01/16 17:05 12/01/16 20:00 Sodium Level 128mmol/L (136-145) 131mmol/L (136-145) 134mmol/L (136-145) Potassium Level 3.4mmol/L (3.5-5.1) Chloride Level 94mmol/L (98-107) Carbon Dioxide Level 24mmol/L (21-32) Anion Gap 10 (6-14) Blood Urea Nitrogen 12mg/dL (8-26) Creatinine 1.1mg/dL (0.7-1.3) Estimated GFR (Cockcroft-Gault) 67.2 Glucose Level 126mg/dL (70-99) Lactic Acid Level 1.2mmol/L (0.4-2.0) Uric Acid 7.0mg/dL (3.5-7.2) Calcium Level 8.0mg/dL (8.5-10.1) Urine Random Sodium <20mmol/L (Not Estab.) Test 12/01/16 22:10 12/02/16 00:20 12/02/16 04:20 12/02/16 07:55 Potassium Level 3.7mmol/L (3.5-5.1) 3.7mmol/L (3.5-5.1) Sodium Level 136mmol/L (136-145) 134mmol/L (136-145) 133mmol/L (136-145) White Blood Count 10.9x10^3/uL (4.0-11.0) Red Blood Count 4.06x10^6/uL (4.30-5.70) Hemoglobin 13.0g/dL (13.0-17.5) Hematocrit 37.3% (39.0-53.0) Mean Corpuscular Volume 92fL (79-100) Mean Corpuscular Hemoglobin 32pg (25-35) Mean Corpuscular Hemoglobin Concent 35g/dL (31-37) Red Cell Distribution Width 13.4% (11.5-14.5) Platelet Count 146x10^3/uL (140-400) Neutrophils (%) (Auto) 86% (31-73) Lymphocytes (%) (Auto) 5% (24-48) Monocytes (%) (Auto) 9% (0-9) Eosinophils (%) (Auto) 0% (0-3) Basophils (%) (Auto) 0% (0-3) Neutrophils # (Auto) 9.3x10^3uL (1.8-7.7) Lymphocytes # (Auto) 0.6x10^3/uL (1.0-4.8) Monocytes # (Auto) 0.9x10^3/uL (0.0-1.1) Eosinophils # (Auto) 0.0x10^3/uL (0.0-0.7) Basophils # (Auto) 0.0x10^3/uL (0.0-0.2) Chloride Level 101mmol/L (98-107) Carbon Dioxide Level 25mmol/L (21-32) Anion Gap 8 (6-14) Blood Urea Nitrogen 8mg/dL (8-26) Creatinine 0.8mg/dL (0.7-1.3) Estimated GFR (Cockcroft-Gault) 97.0 Glucose Level 133mg/dL (70-99) Lactic Acid Level 1.0mmol/L (0.4-2.0) Calcium Level 8.4mg/dL (8.5-10.1) Phosphorus Level 2.3mg/dL (2.6-4.7) Magnesium Level 2.2mg/dL (1.8-2.4) Total Bilirubin 0.9mg/dL (0.2-1.0) Direct Bilirubin 0.3mg/dL (0.0-0.2) Aspartate Amino Transf (AST/SGOT) 239U/L (15-37) Alanine Aminotransferase (ALT/SGPT) 94U/L (16-63) Alkaline Phosphatase 95U/L (46-116) Creatine Kinase 7558U/L (39-308) Total Protein 5.6g/dL (6.4-8.2) Albumin 3.1g/dL (3.4-5.0) Laboratory Tests Test 12/01/16 10:40 12/01/16 10:47 12/01/16 13:15 12/01/16 13:55 Urine Collection Type U cath Urine Color Yellow Urine Clarity Clear Urine pH 5.5 Urine Specific [place] <=1.005 Urine Protein Negativemg/dL (NEG-TRACE) Urine Glucose (UA) Negativemg/dL (NEG) Urine Ketones (Stick) Negativemg/dL (NEG) Urine Blood Large (NEG) Urine Nitrite Negative (NEG) Urine Bilirubin Negative (NEG) Urine Urobilinogen Dipstick 0.2mg/dL (0.2 mg/dL) Urine Leukocyte Esterase Negative (NEG) Urine RBC Occ/HPF (0-2) Urine WBC 0/HPF (0-4) Urine Squamous Epithelial Cells Occ/LPF Urine Bacteria 0/HPF (0-FEW) Urine Mucus Slight/LPF Urine Opiates Screen Neg (NEG) Urine Methadone Screen Neg (NEG) Urine Barbiturates Neg (NEG) Urine Phencyclidine Screen Neg (NEG) Urine Amphetamine/Methamphetamine Neg (NEG) Urine Benzodiazepines Screen Neg (NEG) Urine Cocaine Screen Neg (NEG) Urine Cannabinoids Screen Neg (NEG) Urine Ethyl Alcohol Neg (NEG) O2 Saturation 95% (92-99) Arterial Blood pH 7.42 (7.35-7.45) Arterial Blood pCO2 at Patient Temp 33mmHg (35-46) Arterial Blood pO2 at Patient Temp 77mmHg (65-108) Arterial Blood HCO3 21mmol/L (21-28) Arterial Blood Base Excess -3mmol/L (-3-3) Oxyhemoglobin 93.9% Methemoglobin 0.2% (0.0-1.9) Carbon Monoxide, Quantitative 0.8% (0.0-1.9) FiO2 21 Nasal Screen MRSA (PCR) Negative (Negative) Sodium Level 128mmol/L (136-145) Potassium Level 3.4mmol/L (3.5-5.1) Chloride Level 94mmol/L (98-107) Carbon Dioxide Level 24mmol/L (21-32) Anion Gap 10 (6-14) Blood Urea Nitrogen 12mg/dL (8-26) Creatinine 1.1mg/dL (0.7-1.3) Estimated GFR (Cockcroft-Gault) 67.2 Glucose Level 126mg/dL (70-99) Lactic Acid Level 1.2mmol/L (0.4-2.0) Uric Acid 7.0mg/dL (3.5-7.2) Calcium Level 8.0mg/dL (8.5-10.1) Test 12/01/16 15:50 12/01/16 17:05 12/01/16 20:00 12/01/16 22:10 Sodium Level 131mmol/L (136-145) 134mmol/L (136-145) Urine Random Sodium <20mmol/L (Not Estab.) Potassium Level 3.7mmol/L (3.5-5.1) Test 12/02/16 00:20 12/02/16 04:20 12/02/16 07:55 Sodium Level 136mmol/L (136-145) 134mmol/L (136-145) 133mmol/L (136-145) White Blood Count 10.9x10^3/uL (4.0-11.0) Red Blood Count 4.06x10^6/uL (4.30-5.70) Hemoglobin 13.0g/dL (13.0-17.5) Hematocrit 37.3% (39.0-53.0) Mean Corpuscular Volume 92fL (79-100) Mean Corpuscular Hemoglobin 32pg (25-35) Mean Corpuscular Hemoglobin Concent 35g/dL (31-37) Red Cell Distribution Width 13.4% (11.5-14.5) Platelet Count 146x10^3/uL (140-400) Neutrophils (%) (Auto) 86% (31-73) Lymphocytes (%) (Auto) 5% (24-48) Monocytes (%) (Auto) 9% (0-9) Eosinophils (%) (Auto) 0% (0-3) Basophils (%) (Auto) 0% (0-3) Neutrophils # (Auto) 9.3x10^3uL (1.8-7.7) Lymphocytes # (Auto) 0.6x10^3/uL (1.0-4.8) Monocytes # (Auto) 0.9x10^3/uL (0.0-1.1) Eosinophils # (Auto) 0.0x10^3/uL (0.0-0.7) Basophils # (Auto) 0.0x10^3/uL (0.0-0.2) Potassium Level 3.7mmol/L (3.5-5.1) Chloride Level 101mmol/L (98-107) Carbon Dioxide Level 25mmol/L (21-32) Anion Gap 8 (6-14) Blood Urea Nitrogen 8mg/dL (8-26) Creatinine 0.8mg/dL (0.7-1.3) Estimated GFR (Cockcroft-Gault) 97.0 Glucose Level 133mg/dL (70-99) Lactic Acid Level 1.0mmol/L (0.4-2.0) Calcium Level 8.4mg/dL (8.5-10.1) Phosphorus Level 2.3mg/dL (2.6-4.7) Magnesium Level 2.2mg/dL (1.8-2.4) Total Bilirubin 0.9mg/dL (0.2-1.0) Direct Bilirubin 0.3mg/dL (0.0-0.2) Aspartate Amino Transf (AST/SGOT) 239U/L (15-37) Alanine Aminotransferase (ALT/SGPT) 94U/L (16-63) Alkaline Phosphatase 95U/L (46-116) Creatine Kinase 7558U/L (39-308) Total Protein 5.6g/dL (6.4-8.2) Albumin 3.1g/dL (3.4-5.0) Microbiology 12/01/16 Blood Culture - Preliminary, Resulted NO GROWTH AFTER 1 DAY Medications Current Medications Ondansetron HCl 4 mg 4 mg 1X ONCE IV Last administered on 12/01/16 10:55; Start 12/01/16 at 10:30; Stop 12/01/16 at 10:31; Status DC Sodium Chloride (Iv Sodium Chloride 0.9% 1000ml Bag) 1,000 ml @ 1,000 mls/hr 1X ONCE IV Last administered on 12/01/16 11:02; Start 12/01/16 at 11:00; Stop 12/01/16 at 11:59; Status DC Ondansetron HCl 4 mg 4 mg PRN Q8HRS PRN IV NAUSEA/VOMITING; Start 12/01/16 at 12 :15; Stop 12/02/16 at 12:14 Sodium Chloride 1,000 ml @ 150 mls/hr Q6H40M IV ; Start 12/01/16 at 12:09; Stop 12/01/16 at 15:01; Status DC Sodium Chloride (Iv Sodium Chloride 0.9% 1000ml Bag) 1,000 ml @ 1,000 mls/hr 1X ONCE IV Last administered on 12/01/16 13:00; Start 12/01/16 at 13:00; Stop 12/01/16 at 13:59; Status DC Enoxaparin Sodium (Lovenox Per Pharmacy Prophylaxis Dosing) 1 each PRN DAILY PRN MC SEE COMMENTS; Start 12/01/16 at 13:45 Enoxaparin Sodium 40 mg 40 mg Q24H SQ Last administered on 12/01/16 15:51; Start 12/01/16 at 14:00 Magnesium Sulfate/ Dextrose 50 ml @ 25 mls/hr PRN DAILY PRN IV for Mag < 1.7 on am labs; Start 12/01/16 at 13:45 Sodium Chloride 500 ml @ 0 mls/hr QID PRN IV UO< 30cc/hr over previous 6hrs; Start 12/01/16 at 14:00; Stop 12/01/16 at 15:01; Status DC Potassium Chloride 100 ml @ 100 mls/hr Q1H IV Last administered on 12/01/16 17 :09; Start 12/01/16 at 15:00; Stop 12/01/16 at 16:59; Status DC Sodium Chloride 1,000 ml @ 75 mls/hr [id number] IV ; Start 12/01/16 at 15:00; Stop 12/02/16 at 04:53; Status DC Magnesium Sulfate/ Dextrose 50 ml @ 25 mls/hr PRN DAILY PRN IV for Mag < 1.7 on am labs; Start 12/01/16 at 15:00 Potassium Chloride 50 ml @ 50 mls/hr PRN Q6HRS PRN IV For K < 3.7; Start at 15:00 Potassium Chloride 50 ml @ 50 mls/hr PRN Q2HR PRN IV total of 40mEq for K < 3.5; Start 12/01/16 at 15:00 Dextrose 1,000 ml @ 100 mls/hr Q10H IV Last administered on 12/01/16 23:52; Start 12/01/16 at 15:15; Stop 12/02/16 at 08:21; Status DC Lorazepam (Ativan) 1 mg PRN Q4HRS PRN PO ANXIETY / AGITATION; Start 12/01/16 at 18:15; Stop 12/01/16 at 18:15; Status DC Lorazepam (Ativan) 1 mg PRN Q4HRS PRN IV ANXIETY / AGITATION Last administered on 12/01/16 18:16; Start 12/01/16 at 18:15 Desmopressin Acetate 1 mcg 1 mcg BID IV Last administered on 12/01/16 21:24; Start 12/01/16 at 21:30; Stop 12/02/16 at 08:12; Status DC Potassium Phosphate 13.6 mmol/Sodium Chloride 104.5333 ml @ 52.267 m... Q2H IV Last administered on 12/02/16 09:42; Start 12/02/16 at 09:00; Stop 12/02/16 at 14:59 Sodium Chloride (Iv Sodium Chloride 0.45%) 1,000 ml @ 100 mls/hr Q10H IV Last administered on 12/02/16 09:42; Start 12/02/16 at 08:30 Vitals/I & O Vital Sign - Last 24 Hours 12/01/16 12/01/16 12/01/16 12/01/16 10:30 10:45 11:00 11:15 Pulse 60 56 56 60 Resp 18 18 16 18 B/P 129/74 122/71 122/61 126/78 Pulse Ox 98 99 98 99 O2 Delivery Room Air 12/01/16 12/01/16 12/01/16 12/01/16 11:30 11:45 12:00 12:45 Pulse 62 60 62 Resp 18 16 19 B/P 154/67 136/71 133/67 Pulse Ox 98 97 98 O2 Delivery Room Air Room Air 12/01/16 12/01/16 12/01/16 12/01/16 13:00 14:00 15:00 16:00 Temp 97.9 97.9 Pulse 66 64 66 Resp 17 15 B/P 122/67 132/66 131/67 Pulse Ox 97 96 97 O2 Delivery Room Air Room Air Room Air Room Air 12/01/16 12/01/16 12/01/16 12/01/16 16:00 17:00 18:00 19:00 Temp 98.0 98.0 Pulse 82 74 100 104 Resp 19 B/P 122/62 121/66 141/96 95/55 Pulse Ox 98 98 96 97 O2 Delivery Room Air Room Air Room Air Room Air 12/01/16 12/01/16 12/01/16 12/01/16 20:00 20:00 21:00 22:00 Temp 98.4 98.4 Pulse 90 84 86 Resp 14 B/P 99/56 93/50 90/52 Pulse Ox 98 98 98 O2 Delivery Room Air Room Air Room Air Room Air 12/01/16 12/02/16 12/02/16 12/02/16 23:00 00:00 00:00 01:00 Temp 97.9 97.9 Pulse 99 69 78 Resp 17 B/P 109/64 117/68 114/58 Pulse Ox 98 95 96 O2 Delivery Room Air Room Air Room Air Room Air 12/02/16 12/02/16 12/02/16 12/02/16 02:00 03:00 04:00 04:00 Temp 98.3 98.3 Pulse 76 86 86 Resp 17 14 14 B/P 109/56 135/71 135/71 Pulse Ox 96 91 91 O2 Delivery Room Air Room Air Room Air Room Air 12/02/16 12/02/16 05:00 06:00 Pulse 66 69 Resp 15 16 B/P 128/77 129/78 Pulse Ox 96 96 O2 Delivery Room Air Room Air Intake and Output 12/01/16 12/01/16 12/02/16 15:00 23:00 07:00 Intake Total 1950 ml 214.8 ml 1247 ml Output Total 3375 ml 2735 ml 507 ml Balance -1425 ml -2520.2 ml 740 ml ARTIE MANZANARES MD Dec 02, 2016 10:30
[2016-12-02 14:09] LABS: POTASSIUM 3.8 mmol/L (3.5-5.1)
[2016-12-02] MEDS: ENOXAPARIN 40 MG/0.4 ML DISP.SYRIN. SQ SCH (14:55)
[2016-12-03 03:00] VITALS: BP 124/66
[2016-12-03] MEDS: IV 1/2 NORMAL SALINE 1,000 ML IV SCH ×3 (04:59→23:49)
[2016-12-03 06:18] LABS: ALBUMIN 2.7 g/dL (3.4-5.0); CALCIUM 7.4 mg/dL (8.5-10.1); CREATININE 0.8 mg/dL (0.7-1.3); PHOSPHORUS 2.1 mg/dL (2.6-4.7); POTASSIUM 3.7 mmol/L (3.5-5.1)
[2016-12-03 06:28] LABS: MAGNESIUM 1.8 mg/dL (1.8-2.4)
[2016-12-03 07:00] VITALS: BP 141/77
[2016-12-03 11:33] VITALS: BP 130/81
[2016-12-03] MEDS ORDERED: POTASSIUM CHLORIDE 20 MEQ TABLET.ER. PO ONE (13:30)
--- NOTE | 2016-12-03 13:35 | PDOC ---
SUBJECTIVE ROS F/up HypoNatremia and rhbado Doign better, asking about going ho me CVS: no Orthopnea, no CP RESP: no SOB, no JOSEPH GI: no Nausea, no Vomiting : no Dysuria, no Urgency OBJECTIVE Vital Signs Vital Signs Date Time Temp Pulse Resp B/P Pulse Ox O2 Delivery O2 Flow Rate FiO2 12/03/16 11:33 98.8 66 16 130/81 96 Room Air 98.8 I & 0 Intake and Output 12/03/16 07:00 Intake Total 2800 ml Output Total 2010 ml Balance 790 ml Intake Oral 800 ml IV Total 2000 ml Output Urine Total 2010 ml PHYSICAL EXAM Physical Exam General Appearance: Fully arousable, Alert and Oriented x 3 In no Distress Eyes: VIsion Unchanged Conjunctiva Normal EN: No EN Drainage Mucous Memb. dryish Neck: no JVD no JVP Supple no Thyromegaly CVS: S1 S2 no Murmur No Gallop No Rub no Edema Resp: no Rales no Rhonchi no Acc. Muscle use GI: BS +ve NO Bruit Non Tender Non Distended : no CVA tenderness; no Suprapubic Tenderness ASSESSMENT/PLAN Assessment/Plan Hyponatremia - associated with bowel PreP? ; Home list of meds NA currently Polydipsia cannot be ruled out. Had significant Polyuria and need to be changed to D5W and 1 dose of DDAVP also HypoKalemia - replaced per sliding scale Rhabdomyolysis - suspect due to Sz (from Hyponatremia) - CK trending down - will ct IVF for now until CK < 1000 AMS - ? Post-ictal - much improved Low Phos (despite Rhabdo) - IV Kphos x 1 Pt THreatening to leave AMA COMMENT/RELEVANT DATA Meds Current Medications Medications (Trade) Dose Ordered Sig/Bhumi Start Time Stop Time Status Last Admin Dose Admin Desmopressin Acetate 1 mcg 1 mcg BID 12/01/16 21:30 12/02/16 08:12 DC 12/01/16 21:24 1 MCG Dextrose 1,000 ml @ 100 mls/hr Q10H 12/01/16 15:15 12/02/16 08:21 DC 12/01/16 23:52 100 MLS/HR Enoxaparin Sodium (Lovenox Per Pharmacy Prophylaxis Dosing) 1 each PRN DAILY PRN 12/01/16 13:45 12/03/16 12:50 DC Enoxaparin Sodium 40 mg 40 mg Q24H 12/01/16 14:00 12/02/16 14:55 40 MG Lorazepam (Ativan) 1 mg PRN Q4HRS PRN 12/01/16 18:15 12/01/16 18:16 1 MG Magnesium Sulfate/ Dextrose 50 ml @ 25 mls/hr PRN DAILY PRN 12/01/16 15:00 Ondansetron HCl (Zofran) 4 mg 1X ONCE 12/01/16 10:30 12/01/16 10:31 DC 12/01/16 10:55 4 MG Ondansetron HCl 4 mg 4 mg PRN Q8HRS PRN 12/01/16 12:15 12/02/16 12:14 DC Potassium Phosphate 13.6 mmol/Sodium Chloride 104.5333 ml @ 52.267 m... Q2H 12/02/16 09:00 12/02/16 14:59 DC 12/02/16 13:48 52.267 MLS/HR Potassium Chloride (Klor-Con) 20 meq 1X ONCE 12/03/16 13:30 12/03/16 13:31 Sodium Chloride (Iv Sodium Chloride 0.45%) 1,000 ml @ 100 mls/hr Q10H 12/02/16 08:30 12/03/16 04:59 100 MLS/HR Sodium Chloride (Iv Sodium Chloride 0.9% 1000ml Bag) 1,000 ml @ 1,000 mls/hr 1X ONCE 12/01/16 13:00 12/01/16 13:59 DC 12/01/16 13:00 1,000 MLS/HR Lab Laboratory Tests Test 12/02/16 13:50 12/02/16 21:48 12/03/16 05:47 Sodium Level 133mmol/L (136-145) 139mmol/L (136-145) 136mmol/L (136-145) Potassium Level 3.8mmol/L (3.5-5.1) 3.8mmol/L (3.5-5.1) 3.7mmol/L (3.5-5.1) Chloride Level 104mmol/L (98-107) Carbon Dioxide Level 25mmol/L (21-32) Anion Gap 7 (6-14) Blood Urea Nitrogen 7mg/dL (8-26) Creatinine 0.8mg/dL (0.7-1.3) Estimated GFR (Cockcroft-Gault) 97.0 Glucose Level 87mg/dL (70-99) Calcium Level 7.4mg/dL (8.5-10.1) Phosphorus Level 2.1mg/dL (2.6-4.7) Magnesium Level 1.8mg/dL (1.8-2.4) Creatine Kinase 4781U/L (39-308) Albumin 2.7g/dL (3.4-5.0) JAYSON PATEL MD Dec 03, 2016 13:35
[2016-12-03] MEDS: ENOXAPARIN 40 MG/0.4 ML DISP.SYRIN. SQ SCH (14:33)
--- NOTE | 2016-12-03 14:52 | PDOC ---
PROGRESS NOTES Chief Complaint Chief Complaint Hyponatremia Hypokalemia Rhabdomyolysis AMS Plan AMS Resolved Physically weak, need PT./OT [place] CPK and electrolytes Replace electrolytes, supportive care. History of Present Illness History of Present Illness no fever no chills no chest pain he wants to be discharged, feels well renal still treating rhabdo, cont IV fluid Vitals Vitals Vital Signs Date Time Temp Pulse Resp B/P Pulse Ox O2 Delivery O2 Flow Rate FiO2 12/03/16 11:33 98.8 66 16 130/81 96 Room Air 98.8 Physical Exam General: Alert, Oriented X3, mild distress, Other Heart: Normal S1, Normal S2 Lungs: Clear Abdomen: Normal bowel sounds, Soft, No tenderness (obese) Extremities: No clubbing Skin: No rashes, No breakdown, Other Labs LABS Laboratory Tests Test 12/02/16 21:48 12/03/16 05:47 12/03/16 13:50 Sodium Level 139mmol/L (136-145) 136mmol/L (136-145) 142mmol/L (136-145) Potassium Level 3.8mmol/L (3.5-5.1) 3.7mmol/L (3.5-5.1) 3.8mmol/L (3.5-5.1) Chloride Level 104mmol/L (98-107) Carbon Dioxide Level 25mmol/L (21-32) Anion Gap 7 (6-14) Blood Urea Nitrogen 7mg/dL (8-26) Creatinine 0.8mg/dL (0.7-1.3) Estimated GFR (Cockcroft-Gault) 97.0 Glucose Level 87mg/dL (70-99) Calcium Level 7.4mg/dL (8.5-10.1) Phosphorus Level 2.1mg/dL (2.6-4.7) Magnesium Level 1.8mg/dL (1.8-2.4) Creatine Kinase 4781U/L (39-308) Albumin 2.7g/dL (3.4-5.0) Assessment and Plan Assessmemt and Plan Problems Medical Problems: (1) Altered mental status Status: Acute (2) Hyponatremia Status: Acute (3) Lactic acidosis Status: Acute (4) Mental status change Status: Acute (5) Rhabdomyolysis Status: Acute Problems: Comment Review of Relevant I have reviewed the following items luis (where applicable) has been applied. Labs Laboratory Tests Test 12/01/16 15:50 12/01/16 17:05 12/01/16 20:00 12/01/16 22:10 Sodium Level 131mmol/L (136-145) 134mmol/L (136-145) Urine Random Sodium <20mmol/L (Not Estab.) Potassium Level 3.7mmol/L (3.5-5.1) Test 12/02/16 00:20 12/02/16 04:20 12/02/16 07:55 12/02/16 13:50 Sodium Level 136mmol/L (136-145) 134mmol/L (136-145) 133mmol/L (136-145) 133mmol/L (136-145) White Blood Count 10.9x10^3/uL (4.0-11.0) Red Blood Count 4.06x10^6/uL (4.30-5.70) Hemoglobin 13.0g/dL (13.0-17.5) Hematocrit 37.3% (39.0-53.0) Mean Corpuscular Volume 92fL (79-100) Mean Corpuscular Hemoglobin 32pg (25-35) Mean Corpuscular Hemoglobin Concent 35g/dL (31-37) Red Cell Distribution Width 13.4% (11.5-14.5) Platelet Count 146x10^3/uL (140-400) Neutrophils (%) (Auto) 86% (31-73) Lymphocytes (%) (Auto) 5% (24-48) Monocytes (%) (Auto) 9% (0-9) Eosinophils (%) (Auto) 0% (0-3) Basophils (%) (Auto) 0% (0-3) Neutrophils # (Auto) 9.3x10^3uL (1.8-7.7) Lymphocytes # (Auto) 0.6x10^3/uL (1.0-4.8) Monocytes # (Auto) 0.9x10^3/uL (0.0-1.1) Eosinophils # (Auto) 0.0x10^3/uL (0.0-0.7) Basophils # (Auto) 0.0x10^3/uL (0.0-0.2) Potassium Level 3.7mmol/L (3.5-5.1) 3.8mmol/L (3.5-5.1) Chloride Level 101mmol/L (98-107) Carbon Dioxide Level 25mmol/L (21-32) Anion Gap 8 (6-14) Blood Urea Nitrogen 8mg/dL (8-26) Creatinine 0.8mg/dL (0.7-1.3) Estimated GFR (Cockcroft-Gault) 97.0 Glucose Level 133mg/dL (70-99) Lactic Acid Level 1.0mmol/L (0.4-2.0) Calcium Level 8.4mg/dL (8.5-10.1) Phosphorus Level 2.3mg/dL (2.6-4.7) Magnesium Level 2.2mg/dL (1.8-2.4) Total Bilirubin 0.9mg/dL (0.2-1.0) Direct Bilirubin 0.3mg/dL (0.0-0.2) Aspartate Amino Transf (AST/SGOT) 239U/L (15-37) Alanine Aminotransferase (ALT/SGPT) 94U/L (16-63) Alkaline Phosphatase 95U/L (46-116) Creatine Kinase 7558U/L (39-308) Total Protein 5.6g/dL (6.4-8.2) Albumin 3.1g/dL (3.4-5.0) Test 12/02/16 21:48 12/03/16 05:47 12/03/16 13:50 Sodium Level 139mmol/L (136-145) 136mmol/L (136-145) 142mmol/L (136-145) Potassium Level 3.8mmol/L (3.5-5.1) 3.7mmol/L (3.5-5.1) 3.8mmol/L (3.5-5.1) Chloride Level 104mmol/L (98-107) Carbon Dioxide Level 25mmol/L (21-32) Anion Gap 7 (6-14) Blood Urea Nitrogen 7mg/dL (8-26) Creatinine 0.8mg/dL (0.7-1.3) Estimated GFR (Cockcroft-Gault) 97.0 Glucose Level 87mg/dL (70-99) Calcium Level 7.4mg/dL (8.5-10.1) Phosphorus Level 2.1mg/dL (2.6-4.7) Magnesium Level 1.8mg/dL (1.8-2.4) Creatine Kinase 4781U/L (39-308) Albumin 2.7g/dL (3.4-5.0) Laboratory Tests Test 12/02/16 21:48 12/03/16 05:47 12/03/16 13:50 Sodium Level 139mmol/L (136-145) 136mmol/L (136-145) 142mmol/L (136-145) Potassium Level 3.8mmol/L (3.5-5.1) 3.7mmol/L (3.5-5.1) 3.8mmol/L (3.5-5.1) Chloride Level 104mmol/L (98-107) Carbon Dioxide Level 25mmol/L (21-32) Anion Gap 7 (6-14) Blood Urea Nitrogen 7mg/dL (8-26) Creatinine 0.8mg/dL (0.7-1.3) Estimated GFR (Cockcroft-Gault) 97.0 Glucose Level 87mg/dL (70-99) Calcium Level 7.4mg/dL (8.5-10.1) Phosphorus Level 2.1mg/dL (2.6-4.7) Magnesium Level 1.8mg/dL (1.8-2.4) Creatine Kinase 4781U/L (39-308) Albumin 2.7g/dL (3.4-5.0) Microbiology 12/01/16 Blood Culture - Preliminary, Resulted NO GROWTH AFTER 2 DAYS Medications Current Medications Ondansetron HCl 4 mg 4 mg 1X ONCE IV Last administered on 12/01/16 10:55; Start 12/01/16 at 10:30; Stop 12/01/16 at 10:31; Status DC Sodium Chloride (Iv Sodium Chloride 0.9% 1000ml Bag) 1,000 ml @ 1,000 mls/hr 1X ONCE IV Last administered on 12/01/16 11:02; Start 12/01/16 at 11:00; Stop 12/01/16 at 11:59; Status DC Ondansetron HCl 4 mg 4 mg PRN Q8HRS PRN IV NAUSEA/VOMITING; Start 12/01/16 at 12 :15; Stop 12/02/16 at 12:14; Status DC Sodium Chloride 1,000 ml @ 150 mls/hr Q6H40M IV ; Start 12/01/16 at 12:09; Stop 12/01/16 at 15:01; Status DC Sodium Chloride (Iv Sodium Chloride 0.9% 1000ml Bag) 1,000 ml @ 1,000 mls/hr 1X ONCE IV Last administered on 12/01/16 13:00; Start 12/01/16 at 13:00; Stop 12/01/16 at 13:59; Status DC Enoxaparin Sodium (Lovenox Per Pharmacy Prophylaxis Dosing) 1 each PRN DAILY PRN MC SEE COMMENTS; Start 12/01/16 at 13:45; Stop 12/03/16 at 12:50; Status DC Enoxaparin Sodium 40 mg 40 mg Q24H SQ Last administered on 12/03/16 14:33; Start 12/01/16 at 14:00 Magnesium Sulfate/ Dextrose 50 ml @ 25 mls/hr PRN DAILY PRN IV for Mag < 1.7 on am labs; Start 12/01/16 at 13:45; Stop 12/03/16 at 12:50; Status DC Sodium Chloride 500 ml @ 0 mls/hr QID PRN IV UO< 30cc/hr over previous 6hrs; Start 12/01/16 at 14:00; Stop 12/01/16 at 15:01; Status DC Potassium Chloride 100 ml @ 100 mls/hr Q1H IV Last administered on 12/01/16 17 :09; Start 12/01/16 at 15:00; Stop 12/01/16 at 16:59; Status DC Sodium Chloride 1,000 ml @ 75 mls/hr [id number] IV ; Start 12/01/16 at 15:00; Stop 12/02/16 at 04:53; Status DC Magnesium Sulfate/ Dextrose 50 ml @ 25 mls/hr PRN DAILY PRN IV for Mag < 1.7 on am labs; Start 12/01/16 at 15:00 Potassium Chloride 50 ml @ 50 mls/hr PRN Q6HRS PRN IV For K < 3.7; Start at 15:00 Potassium Chloride 50 ml @ 50 mls/hr PRN Q2HR PRN IV total of 40mEq for K < 3.5; Start 12/01/16 at 15:00 Dextrose 1,000 ml @ 100 mls/hr Q10H IV Last administered on 12/01/16 23:52; Start 12/01/16 at 15:15; Stop 12/02/16 at 08:21; Status DC Lorazepam (Ativan) 1 mg PRN Q4HRS PRN PO ANXIETY / AGITATION; Start 12/01/16 at 18:15; Stop 12/01/16 at 18:15; Status DC Lorazepam (Ativan) 1 mg PRN Q4HRS PRN IV ANXIETY / AGITATION Last administered on 12/01/16 18:16; Start 12/01/16 at 18:15 Desmopressin Acetate 1 mcg 1 mcg BID IV Last administered on 12/01/16 21:24; Start 12/01/16 at 21:30; Stop 12/02/16 at 08:12; Status DC Potassium Phosphate 13.6 mmol/Sodium Chloride 104.5333 ml @ 52.267 m... Q2H IV Last administered on 12/02/16 13:48; Start 12/02/16 at 09:00; Stop 12/02/16 at 14:59; Status DC Sodium Chloride (Iv Sodium Chloride 0.45%) 1,000 ml @ 100 mls/hr Q10H IV Last administered on 12/03/16 04:59; Start 12/02/16 at 08:30 Potassium Chloride (Klor-Con) 20 meq 1X ONCE PO Last administered on 12/03/16 14:31; Start 12/03/16 at 13:30; Stop 12/03/16 at 13:31; Status DC Vitals/I & O Vital Sign - Last 24 Hours 12/02/16 12/02/16 12/02/16 12/02/16 16:00 19:00 19:15 23:00 Temp 98.3 98.1 98.1 98.3 98.1 98.1 Pulse 86 104 85 Resp 18 22 22 B/P 107/70 110/58 96/50 Pulse Ox 91 93 95 O2 Delivery Room Air Room Air Room Air Room Air 12/03/16 12/03/16 12/03/16 12/03/16 03:00 07:00 08:00 11:33 Temp 98.4 97.9 98.8 98.4 97.9 98.8 Pulse 69 65 66 Resp 22 16 16 B/P 124/66 141/77 130/81 Pulse Ox 97 95 96 O2 Delivery Room Air Room Air Room Air Room Air Intake and Output 12/02/16 12/02/16 12/03/16 15:00 23:00 07:00 Intake Total 1700 ml 1100 ml Output Total 460 ml 300 ml 1250 ml Balance -460 ml 1400 ml -150 ml AMAN GONZALEZ MD Dec 03, 2016 14:52
[2016-12-03 15:36] VITALS: BP 134/81
[2016-12-03 19:00] VITALS: BP 144/78
[2016-12-03 23:00] VITALS: BP 139/87
[2016-12-04 03:05] VITALS: BP 132/68
[2016-12-04 06:35] LABS: CALCIUM 8.6 mg/dL (8.5-10.1); CREATININE 0.7 mg/dL (0.7-1.3); GFR 113.2; PHOSPHORUS 3.2 mg/dL (2.6-4.7); POTASSIUM 4.1 mmol/L (3.5-5.1)
[2016-12-04 07:00] VITALS: BP 136/78
[2016-12-04] MEDS: IV 1/2 NORMAL SALINE 1,000 ML IV SCH ×2 (09:48→20:08)
[2016-12-04 11:00] VITALS: BP 129/85
--- NOTE | 2016-12-04 11:51 | PDOC ---
SUBJECTIVE ROS RHABDO OBJECTIVE Vital Signs Vital Signs Date Time Temp Pulse Resp B/P Pulse Ox O2 Delivery O2 Flow Rate FiO2 12/04/16 11:00 98.0 84 17 129/85 96 Room Air 98.0 I & 0 Intake and Output 12/04/16 07:00 Intake Total 2040 ml Output Total 2400 ml Balance -360 ml Intake Oral 1040 ml IV Total 1000 ml Output Urine Total 2400 ml PHYSICAL EXAM Physical Exam General Appearance: Fully arousable, Alert and Oriented x 3 In no Distress Eyes: VIsion Unchanged Conjunctiva Normal EN: No EN Drainage Mucous Memb. dryish Neck: no JVD no JVP Supple no Thyromegaly CVS: S1 S2 no Murmur No Gallop No Rub no Edema Resp: no Rales no Rhonchi no Acc. Muscle use GI: BS +ve NO Bruit Non Tender Non Distended : no CVA tenderness; no Suprapubic Tenderness ASSESSMENT/PLAN Hyponatremia - associated with bowel PreP? ; NOW STABLE IN NORMAL RANGE Rhabdomyolysis - suspect due to ? Possible Sz (from Hyponatremia) - CK trending down - will ct IVF for now until CK < 1000 HypoAlbuminemia - PO Intake is OK so far COMMENT/RELEVANT DATA Meds Current Medications Medications (Trade) Dose Ordered Sig/Bhumi Start Time Stop Time Status Last Admin Dose Admin Desmopressin Acetate 1 mcg 1 mcg BID 12/01/16 21:30 12/02/16 08:12 DC 12/01/16 21:24 1 MCG Dextrose 1,000 ml @ 100 mls/hr Q10H 12/01/16 15:15 12/02/16 08:21 DC 12/01/16 23:52 100 MLS/HR Enoxaparin Sodium (Lovenox Per Pharmacy Prophylaxis Dosing) 1 each PRN DAILY PRN 12/01/16 13:45 12/03/16 12:50 DC Enoxaparin Sodium 40 mg 40 mg Q24H 12/01/16 14:00 12/03/16 14:33 40 MG Lorazepam (Ativan) 1 mg PRN Q4HRS PRN 12/01/16 18:15 12/01/16 18:16 1 MG Magnesium Sulfate/ Dextrose 50 ml @ 25 mls/hr PRN DAILY PRN 12/01/16 15:00 Ondansetron HCl (Zofran) 4 mg 1X ONCE 12/01/16 10:30 2/6/17 10:31 DC 12/01/16 10:55 4 MG Ondansetron HCl 4 mg 4 mg PRN Q8HRS PRN 12/01/16 12:15 12/02/16 12:14 DC Potassium Phosphate 13.6 mmol/Sodium Chloride 104.5333 ml @ 52.267 m... Q2H 12/02/16 09:00 12/02/16 14:59 DC 12/02/16 13:48 52.267 MLS/HR Potassium Chloride (Klor-Con) 20 meq 1X ONCE 12/03/16 13:30 12/03/16 13:31 DC 12/03/16 14:31 20 MEQ Sodium Chloride (Iv Sodium Chloride 0.45%) 1,000 ml @ 100 mls/hr Q10H 12/02/16 08:30 12/04/16 09:48 100 MLS/HR Sodium Chloride (Iv Sodium Chloride 0.9% 1000ml Bag) 1,000 ml @ 1,000 mls/hr 1X ONCE 12/01/16 13:00 12/01/16 13:59 DC 12/01/16 13:00 1,000 MLS/HR Lab Laboratory Tests Test 12/03/16 13:50 12/03/16 21:32 12/04/16 05:50 Sodium Level 142mmol/L (136-145) 142mmol/L (136-145) 142mmol/L (136-145) Potassium Level 3.8mmol/L (3.5-5.1) 4.0mmol/L (3.5-5.1) 4.1mmol/L (3.5-5.1) Chloride Level 109mmol/L (98-107) Carbon Dioxide Level 25mmol/L (21-32) Anion Gap 8 (6-14) Blood Urea Nitrogen 9mg/dL (8-26) Creatinine 0.7mg/dL (0.7-1.3) Estimated GFR (Cockcroft-Gault) 113.2 Glucose Level 93mg/dL (70-99) Calcium Level 8.6mg/dL (8.5-10.1) Phosphorus Level 3.2mg/dL (2.6-4.7) Magnesium Level 2.0mg/dL (1.8-2.4) Creatine Kinase 3847U/L (39-308) Albumin 3.0g/dL (3.4-5.0) JAYSON PATEL MD Dec 04, 2016 11:51
--- NOTE | 2016-12-04 14:19 | PDOC ---
PROGRESS NOTES Chief Complaint Chief Complaint Hyponatremia Hypokalemia Rhabdomyolysis AMS obesity, BMI 31 vasomotor nephropathy on admit History of Present Illness History of Present Illness AMS Resolved Physically weak, need PT./OT [place] CPK and electrolytes Replace electrolytes, supportive care. no fever - no chills - no chest pain he wants to be discharged, feels well renal still treating rhabdo, cont IV fluid Vitals Vitals Vital Signs Date Time Temp Pulse Resp B/P Pulse Ox O2 Delivery O2 Flow Rate FiO2 12/04/16 11:00 98.0 84 17 129/85 96 Room Air 98.0 Physical Exam General: Alert, Oriented X3, No acute distress, Other Heart: Normal S1, Normal S2, No murmurs Lungs: Clear Abdomen: Normal bowel sounds, Soft, No tenderness (obese) Extremities: No clubbing, No edema Skin: No rashes, No breakdown, No significant lesion, Other Labs LABS Laboratory Tests Test 12/03/16 21:32 12/04/16 05:50 Sodium Level 142mmol/L (136-145) 142mmol/L (136-145) Potassium Level 4.0mmol/L (3.5-5.1) 4.1mmol/L (3.5-5.1) Chloride Level 109mmol/L (98-107) Carbon Dioxide Level 25mmol/L (21-32) Anion Gap 8 (6-14) Blood Urea Nitrogen 9mg/dL (8-26) Creatinine 0.7mg/dL (0.7-1.3) Estimated GFR (Cockcroft-Gault) 113.2 Glucose Level 93mg/dL (70-99) Calcium Level 8.6mg/dL (8.5-10.1) Phosphorus Level 3.2mg/dL (2.6-4.7) Magnesium Level 2.0mg/dL (1.8-2.4) Creatine Kinase 3847U/L (39-308) Albumin 3.0g/dL (3.4-5.0) Review of Systems Review of Systems no n.v.d Assessment and Plan Assessmemt and Plan Problems Medical Problems: (1) Altered mental status Status: Acute (2) Hyponatremia Status: Acute (3) Lactic acidosis Status: Acute (4) Mental status change Status: Acute (5) Rhabdomyolysis Status: Acute Problems: Comment Review of Relevant I have reviewed the following items luis (where applicable) has been applied. Labs Laboratory Tests Test 12/02/16 21:48 12/03/16 05:47 12/03/16 13:50 12/03/16 21:32 Sodium Level 139mmol/L (136-145) 136mmol/L (136-145) 142mmol/L (136-145) 142mmol/L (136-145) Potassium Level 3.8mmol/L (3.5-5.1) 3.7mmol/L (3.5-5.1) 3.8mmol/L (3.5-5.1) 4.0mmol/L (3.5-5.1) Chloride Level 104mmol/L (98-107) Carbon Dioxide Level 25mmol/L (21-32) Anion Gap 7 (6-14) Blood Urea Nitrogen 7mg/dL (8-26) Creatinine 0.8mg/dL (0.7-1.3) Estimated GFR (Cockcroft-Gault) 97.0 Glucose Level 87mg/dL (70-99) Calcium Level 7.4mg/dL (8.5-10.1) Phosphorus Level 2.1mg/dL (2.6-4.7) Magnesium Level 1.8mg/dL (1.8-2.4) Creatine Kinase 4781U/L (39-308) Albumin 2.7g/dL (3.4-5.0) Test 12/04/16 05:50 Sodium Level 142mmol/L (136-145) Potassium Level 4.1mmol/L (3.5-5.1) Chloride Level 109mmol/L (98-107) Carbon Dioxide Level 25mmol/L (21-32) Anion Gap 8 (6-14) Blood Urea Nitrogen 9mg/dL (8-26) Creatinine 0.7mg/dL (0.7-1.3) Estimated GFR (Cockcroft-Gault) 113.2 Glucose Level 93mg/dL (70-99) Calcium Level 8.6mg/dL (8.5-10.1) Phosphorus Level 3.2mg/dL (2.6-4.7) Magnesium Level 2.0mg/dL (1.8-2.4) Creatine Kinase 3847U/L (39-308) Albumin 3.0g/dL (3.4-5.0) Laboratory Tests Test 12/03/16 21:32 12/04/16 05:50 Sodium Level 142mmol/L (136-145) 142mmol/L (136-145) Potassium Level 4.0mmol/L (3.5-5.1) 4.1mmol/L (3.5-5.1) Chloride Level 109mmol/L (98-107) Carbon Dioxide Level 25mmol/L (21-32) Anion Gap 8 (6-14) Blood Urea Nitrogen 9mg/dL (8-26) Creatinine 0.7mg/dL (0.7-1.3) Estimated GFR (Cockcroft-Gault) 113.2 Glucose Level 93mg/dL (70-99) Calcium Level 8.6mg/dL (8.5-10.1) Phosphorus Level 3.2mg/dL (2.6-4.7) Magnesium Level 2.0mg/dL (1.8-2.4) Creatine Kinase 3847U/L (39-308) Albumin 3.0g/dL (3.4-5.0) Microbiology 12/01/16 Blood Culture - Preliminary, Resulted NO GROWTH AFTER 3 DAYS Medications Current Medications Ondansetron HCl 4 mg 4 mg 1X ONCE IV Last administered on 12/01/16 10:55; Start 12/01/16 at 10:30; Stop 12/01/16 at 10:31; Status DC Sodium Chloride (Iv Sodium Chloride 0.9% 1000ml Bag) 1,000 ml @ 1,000 mls/hr 1X ONCE IV Last administered on 12/01/16 11:02; Start 12/01/16 at 11:00; Stop 12/01/16 at 11:59; Status DC Ondansetron HCl 4 mg 4 mg PRN Q8HRS PRN IV NAUSEA/VOMITING; Start 12/01/16 at 12 :15; Stop 12/02/16 at 12:14; Status DC Sodium Chloride 1,000 ml @ 150 mls/hr Q6H40M IV ; Start 12/01/16 at 12:09; Stop 12/01/16 at 15:01; Status DC Sodium Chloride (Iv Sodium Chloride 0.9% 1000ml Bag) 1,000 ml @ 1,000 mls/hr 1X ONCE IV Last administered on 12/01/16 13:00; Start 12/01/16 at 13:00; Stop 12/01/16 at 13:59; Status DC Enoxaparin Sodium (Lovenox Per Pharmacy Prophylaxis Dosing) 1 each PRN DAILY PRN MC SEE COMMENTS; Start 12/01/16 at 13:45; Stop 12/03/16 at 12:50; Status DC Enoxaparin Sodium 40 mg 40 mg Q24H SQ Last administered on 12/03/16 14:33; Start 12/01/16 at 14:00 Magnesium Sulfate/ Dextrose 50 ml @ 25 mls/hr PRN DAILY PRN IV for Mag < 1.7 on am labs; Start 12/01/16 at 13:45; Stop 12/03/16 at 12:50; Status DC Sodium Chloride 500 ml @ 0 mls/hr QID PRN IV UO< 30cc/hr over previous 6hrs; Start 12/01/16 at 14:00; Stop 12/01/16 at 15:01; Status DC Potassium Chloride 100 ml @ 100 mls/hr Q1H IV Last administered on 12/01/16 17 :09; Start 12/01/16 at 15:00; Stop 12/01/16 at 16:59; Status DC Sodium Chloride 1,000 ml @ 75 mls/hr [id number] IV ; Start 12/01/16 at 15:00; Stop 12/02/16 at 04:53; Status DC Magnesium Sulfate/ Dextrose 50 ml @ 25 mls/hr PRN DAILY PRN IV for Mag < 1.7 on am labs; Start 12/01/16 at 15:00 Potassium Chloride 50 ml @ 50 mls/hr PRN Q6HRS PRN IV For K < 3.7; Start at 15:00 Potassium Chloride 50 ml @ 50 mls/hr PRN Q2HR PRN IV total of 40mEq for K < 3.5; Start 12/01/16 at 15:00 Dextrose 1,000 ml @ 100 mls/hr Q10H IV Last administered on 12/01/16 23:52; Start 12/01/16 at 15:15; Stop 12/02/16 at 08:21; Status DC Lorazepam (Ativan) 1 mg PRN Q4HRS PRN PO ANXIETY / AGITATION; Start 12/01/16 at 18:15; Stop 12/01/16 at 18:15; Status DC Lorazepam (Ativan) 1 mg PRN Q4HRS PRN IV ANXIETY / AGITATION Last administered on 12/01/16 18:16; Start 12/01/16 at 18:15 Desmopressin Acetate 1 mcg 1 mcg BID IV Last administered on 12/01/16 21:24; Start 12/01/16 at 21:30; Stop 12/02/16 at 08:12; Status DC Potassium Phosphate 13.6 mmol/Sodium Chloride 104.5333 ml @ 52.267 m... Q2H IV Last administered on 12/02/16 13:48; Start 12/02/16 at 09:00; Stop 12/02/16 at 14:59; Status DC Sodium Chloride (Iv Sodium Chloride 0.45%) 1,000 ml @ 100 mls/hr Q10H IV Last administered on 12/04/16 09:48; Start 12/02/16 at 08:30 Potassium Chloride (Klor-Con) 20 meq 1X ONCE PO Last administered on 12/03/16 14:31; Start 12/03/16 at 13:30; Stop 12/03/16 at 13:31; Status DC Vitals/I & O Vital Sign - Last 24 Hours 12/03/16 12/03/16 12/03/16 12/03/16 15:36 19:00 19:20 23:00 Temp 98.6 99.1 98.8 98.6 99.1 98.8 Pulse 74 80 66 Resp 16 20 20 B/P 134/81 144/78 139/87 Pulse Ox 99 97 96 O2 Delivery Room Air Room Air Room Air Room Air 12/04/16 12/04/16 12/04/16 12/04/16 03:05 07:00 08:00 11:00 Temp 98.3 97.9 98.0 98.3 97.9 98.0 Pulse 76 60 84 Resp 20 18 17 B/P 132/68 136/78 129/85 Pulse Ox 97 96 96 O2 Delivery Room Air Room Air Room Air Room Air Intake and Output 12/03/16 12/03/16 12/04/16 15:00 23:00 07:00 Intake Total 360 ml 440 ml 1240 ml Output Total 1400 ml 1000 ml Balance 360 ml -960 ml 240 ml AMAN GONZALEZ MD Dec 04, 2016 14:19
[2016-12-04 15:00] VITALS: BP 134/83
[2016-12-04] MEDS: ENOXAPARIN 40 MG/0.4 ML DISP.SYRIN. SQ SCH (15:16)
[2016-12-04 19:00] VITALS: BP 142/81
[2016-12-04 23:00] VITALS: BP 128/69
[2016-12-05 03:00] VITALS: BP 131/71
[2016-12-05] MEDS: IV 1/2 NORMAL SALINE 1,000 ML IV SCH ×2 (06:23→16:32)
[2016-12-05 07:07] LABS: ALBUMIN 2.9 g/dL (3.4-5.0); CALCIUM 8.7 mg/dL (8.5-10.1); PHOSPHORUS 2.8 mg/dL (2.6-4.7); POTASSIUM 3.6 mmol/L (3.5-5.1)
[2016-12-05] MEDS ORDERED: DEXTROSE 50% 25 GM / 50ML DISP.SYRIN. IV ONE (07:30)
[2016-12-05 07:45] VITALS: BP 133/79
--- NOTE | 2016-12-05 11:00 | PDOC ---
PROGRESS NOTES Chief Complaint Chief Complaint Hyponatremia Hypokalemia Rhabdomyolysis delirium and encephalopathy on admit, now improved obesity, BMI 31 vasomotor nephropathy on admit History of Present Illness History of Present Illness AMS Resolved Physically weak, need PT./OT [place] CPK and electrolytes Replace electrolytes, supportive care. no fever - no chills - no chest pain he wants to be discharged, feels well renal still treating rhabdo, cont IV fluid Vitals Vitals Vital Signs Date Time Temp Pulse Resp B/P Pulse Ox O2 Delivery O2 Flow Rate FiO2 12/05/16 08:15 Room Air 12/05/16 07:45 97.9 65 22 133/79 97 97.9 Physical Exam General: Alert, Oriented X3, No acute distress, Other Heart: Normal S1, Normal S2, No murmurs Lungs: Clear Abdomen: Normal bowel sounds, Soft, No tenderness (obese) Extremities: No clubbing, No edema Skin: No rashes, No breakdown, No significant lesion, Other Labs LABS Laboratory Tests Test 12/05/16 04:15 12/05/16 07:18 Sodium Level 139mmol/L (136-145) Potassium Level 3.6mmol/L (3.5-5.1) Chloride Level 105mmol/L (98-107) Carbon Dioxide Level 25mmol/L (21-32) Anion Gap 9 (6-14) Blood Urea Nitrogen 15mg/dL (8-26) Creatinine 1.0mg/dL (0.7-1.3) Estimated GFR (Cockcroft-Gault) 75.0 Glucose Level 38mg/dL (70-99) Calcium Level 8.7mg/dL (8.5-10.1) Phosphorus Level 2.8mg/dL (2.6-4.7) Magnesium Level 2.1mg/dL (1.8-2.4) Creatine Kinase 3024U/L (39-308) Albumin 2.9g/dL (3.4-5.0) Glucose (Fingerstick) 87mg/dL (70-99) Review of Systems Review of Systems no n,v,d "bored" Assessment and Plan Assessmemt and Plan Problems Medical Problems: (1) Altered mental status Status: Acute (2) Hyponatremia Status: Acute (3) Lactic acidosis Status: Acute (4) Mental status change Status: Acute (5) Rhabdomyolysis Status: Acute Problems: Comment Review of Relevant I have reviewed the following items luis (where applicable) has been applied. Labs Laboratory Tests Test 12/03/16 13:50 12/03/16 21:32 12/04/16 05:50 12/05/16 04:15 Sodium Level 142mmol/L (136-145) 142mmol/L (136-145) 142mmol/L (136-145) 139mmol/L (136-145) Potassium Level 3.8mmol/L (3.5-5.1) 4.0mmol/L (3.5-5.1) 4.1mmol/L (3.5-5.1) 3.6mmol/L (3.5-5.1) Chloride Level 109mmol/L (98-107) 105mmol/L (98-107) Carbon Dioxide Level 25mmol/L (21-32) 25mmol/L (21-32) Anion Gap 8 (6-14) 9 (6-14) Blood Urea Nitrogen 9mg/dL (8-26) 15mg/dL (8-26) Creatinine 0.7mg/dL (0.7-1.3) 1.0mg/dL (0.7-1.3) Estimated GFR (Cockcroft-Gault) 113.2 75.0 Glucose Level 93mg/dL (70-99) 38mg/dL (70-99) Calcium Level 8.6mg/dL (8.5-10.1) 8.7mg/dL (8.5-10.1) Phosphorus Level 3.2mg/dL (2.6-4.7) 2.8mg/dL (2.6-4.7) Magnesium Level 2.0mg/dL (1.8-2.4) 2.1mg/dL (1.8-2.4) Creatine Kinase 3847U/L (39-308) 3024U/L (39-308) Albumin 3.0g/dL (3.4-5.0) 2.9g/dL (3.4-5.0) Test 12/05/16 07:18 Glucose (Fingerstick) 87mg/dL (70-99) Laboratory Tests Test 12/05/16 04:15 2/10/17 07:18 Sodium Level 139mmol/L (136-145) Potassium Level 3.6mmol/L (3.5-5.1) Chloride Level 105mmol/L (98-107) Carbon Dioxide Level 25mmol/L (21-32) Anion Gap 9 (6-14) Blood Urea Nitrogen 15mg/dL (8-26) Creatinine 1.0mg/dL (0.7-1.3) Estimated GFR (Cockcroft-Gault) 75.0 Glucose Level 38mg/dL (70-99) Calcium Level 8.7mg/dL (8.5-10.1) Phosphorus Level 2.8mg/dL (2.6-4.7) Magnesium Level 2.1mg/dL (1.8-2.4) Creatine Kinase 3024U/L (39-308) Albumin 2.9g/dL (3.4-5.0) Glucose (Fingerstick) 87mg/dL (70-99) Microbiology 12/01/16 Blood Culture - Preliminary, Resulted NO GROWTH AFTER 4 DAYS Medications Current Medications Ondansetron HCl 4 mg 4 mg 1X ONCE IV Last administered on 12/01/16 10:55; Start 12/01/16 at 10:30; Stop 12/01/16 at 10:31; Status DC Sodium Chloride (Iv Sodium Chloride 0.9% 1000ml Bag) 1,000 ml @ 1,000 mls/hr 1X ONCE IV Last administered on 12/01/16 11:02; Start 12/01/16 at 11:00; Stop 12/01/16 at 11:59; Status DC Ondansetron HCl 4 mg 4 mg PRN Q8HRS PRN IV NAUSEA/VOMITING; Start 12/01/16 at 12 :15; Stop 12/02/16 at 12:14; Status DC Sodium Chloride 1,000 ml @ 150 mls/hr Q6H40M IV ; Start 12/01/16 at 12:09; Stop 12/01/16 at 15:01; Status DC Sodium Chloride (Iv Sodium Chloride 0.9% 1000ml Bag) 1,000 ml @ 1,000 mls/hr 1X ONCE IV Last administered on 12/01/16 13:00; Start 12/01/16 at 13:00; Stop 12/01/16 at 13:59; Status DC Enoxaparin Sodium (Lovenox Per Pharmacy Prophylaxis Dosing) 1 each PRN DAILY PRN MC SEE COMMENTS; Start 12/01/16 at 13:45; Stop 12/03/16 at 12:50; Status DC Enoxaparin Sodium 40 mg 40 mg Q24H SQ Last administered on 12/04/16 15:16; Start 12/01/16 at 14:00 Magnesium Sulfate/ Dextrose 50 ml @ 25 mls/hr PRN DAILY PRN IV for Mag < 1.7 on am labs; Start 12/01/16 at 13:45; Stop 12/03/16 at 12:50; Status DC Sodium Chloride 500 ml @ 0 mls/hr QID PRN IV UO< 30cc/hr over previous 6hrs; Start 12/01/16 at 14:00; Stop 12/01/16 at 15:01; Status DC Potassium Chloride 100 ml @ 100 mls/hr Q1H IV Last administered on 12/01/16 17 :09; Start 12/01/16 at 15:00; Stop 12/01/16 at 16:59; Status DC Sodium Chloride 1,000 ml @ 75 mls/hr [id number] IV ; Start 12/01/16 at 15:00; Stop 12/02/16 at 04:53; Status DC Magnesium Sulfate/ Dextrose 50 ml @ 25 mls/hr PRN DAILY PRN IV for Mag < 1.7 on am labs; Start 12/01/16 at 15:00 Potassium Chloride 50 ml @ 50 mls/hr PRN Q6HRS PRN IV For K < 3.7; Start at 15:00 Potassium Chloride 50 ml @ 50 mls/hr PRN Q2HR PRN IV total of 40mEq for K < 3.5; Start 12/01/16 at 15:00 Dextrose 1,000 ml @ 100 mls/hr Q10H IV Last administered on 12/01/16 23:52; Start 12/01/16 at 15:15; Stop 12/02/16 at 08:21; Status DC Lorazepam (Ativan) 1 mg PRN Q4HRS PRN PO ANXIETY / AGITATION; Start 12/01/16 at 18:15; Stop 12/01/16 at 18:15; Status DC Lorazepam (Ativan) 1 mg PRN Q4HRS PRN IV ANXIETY / AGITATION Last administered on 12/01/16 18:16; Start 12/01/16 at 18:15 Desmopressin Acetate 1 mcg 1 mcg BID IV Last administered on 12/01/16 21:24; Start 12/01/16 at 21:30; Stop 12/02/16 at 08:12; Status DC Potassium Phosphate 13.6 mmol/Sodium Chloride 104.5333 ml @ 52.267 m... Q2H IV Last administered on 12/02/16 13:48; Start 12/02/16 at 09:00; Stop 12/02/16 at 14:59; Status DC Sodium Chloride (Iv Sodium Chloride 0.45%) 1,000 ml @ 100 mls/hr Q10H IV Last administered on 12/05/16 06:23; Start 12/02/16 at 08:30 Potassium Chloride (Klor-Con) 20 meq 1X ONCE PO Last administered on 12/03/16 14:31; Start 12/03/16 at 13:30; Stop 12/03/16 at 13:31; Status DC Dextrose 25 gm 1X ONCE IV ; Start 12/05/16 at 07:30; Stop 12/05/16 at 07:31; Status DC Vitals/I & O Vital Sign - Last 24 Hours 12/04/16 12/04/16 12/04/16 12/04/16 11:00 15:00 19:00 20:00 Temp 98.0 97.5 98.4 98.0 97.5 98.4 Pulse 84 90 72 Resp 17 B/P 129/85 134/83 142/81 Pulse Ox 96 97 96 O2 Delivery Room Air Room Air Room Air Room Air 12/04/16 12/05/16 12/05/16 12/05/16 23:00 03:00 07:45 08:15 Temp 98.0 98.5 97.9 98.0 98.5 97.9 Pulse 61 59 65 Resp 22 B/P 128/69 131/71 133/79 Pulse Ox 97 97 97 O2 Delivery Room Air Room Air Room Air Room Air Intake and Output 12/04/16 12/04/16 12/05/16 15:00 23:00 07:00 Intake Total 320 ml Output Total 2950 ml 1150 ml Balance -2630 ml -1150 ml AMAN GONZALEZ MD Dec 05, 2016 11:00
[2016-12-05 11:04] VITALS: BP 125/79
--- NOTE | 2016-12-05 11:36 | PDOC ---
SUBJECTIVE ROS F/up Rhabdo doing well - OK to go home OBJECTIVE Vital Signs Vital Signs Date Time Temp Pulse Resp B/P Pulse Ox O2 Delivery O2 Flow Rate FiO2 12/05/16 11:04 98.6 75 21 125/79 97 Room Air 98.6 I & 0 Intake and Output 12/05/16 07:00 Intake Total 320 ml Output Total 4100 ml Balance -3780 ml Intake Oral 320 ml Output Urine Total 4100 ml PHYSICAL EXAM Physical Exam General Appearance: Awake: Alert Oriented x 2-3 Neck: No JVD or JVP Chest: CTA [place] Heart: S1 S2 Abdomen - Soft NTND Extremities - No Edema DIAGNOSIS/ASSESSMENT Assessment & Plan Rhabdomyolysis - suspect due to ? Possible Sz (from Hyponatremia) - CK trending down - will ct IVF for now until CK < 1000 HypoAlbuminemia - PO Intake is OK so far Problems: COMMENT/RELEVANT DATA Meds Current Medications Medications (Trade) Dose Ordered Sig/Bhumi Start Time Stop Time Status Last Admin Dose Admin Desmopressin Acetate 1 mcg 1 mcg BID 12/01/16 21:30 12/02/16 08:12 DC 12/01/16 21:24 1 MCG Dextrose 25 gm 1X ONCE 12/05/16 07:30 12/05/16 07:31 DC Enoxaparin Sodium (Lovenox Per Pharmacy Prophylaxis Dosing) 1 each PRN DAILY PRN 12/01/16 13:45 12/03/16 12:50 DC Enoxaparin Sodium 40 mg 40 mg Q24H 12/01/16 14:00 12/04/16 15:16 40 MG Lorazepam (Ativan) 1 mg PRN Q4HRS PRN 12/01/16 18:15 12/01/16 18:16 1 MG Magnesium Sulfate/ Dextrose 50 ml @ 25 mls/hr PRN DAILY PRN 12/01/16 15:00 Ondansetron HCl (Zofran) 4 mg 1X ONCE 12/01/16 10:30 12/01/16 10:31 DC 12/01/16 10:55 4 MG Ondansetron HCl 4 mg 4 mg PRN Q8HRS PRN 12/01/16 12:15 12/02/16 12:14 DC Potassium Phosphate 13.6 mmol/Sodium Chloride 104.5333 ml @ 52.267 m... Q2H 12/02/16 09:00 12/02/16 14:59 DC 12/02/16 13:48 52.267 MLS/HR Potassium Chloride (KCl Premix 20meq) 50 ml @ 50 mls/hr PRN Q2HR PRN 12/01/16 15:00 Potassium Chloride (Klor-Con) 20 meq 1X ONCE 12/03/16 13:30 12/03/16 13:31 DC 12/03/16 14:31 20 MEQ Sodium Chloride (Iv Sodium Chloride 0.45%) 1,000 ml @ 100 mls/hr Q10H 12/02/16 08:30 12/05/16 06:23 100 MLS/HR Sodium Chloride (Iv Sodium Chloride 0.9% 1000ml Bag) 1,000 ml @ 1,000 mls/hr 1X ONCE 12/01/16 13:00 12/01/16 13:59 DC 12/01/16 13:00 1,000 MLS/HR Lab Laboratory Tests Test 12/05/16 04:15 12/05/16 07:18 Sodium Level 139mmol/L (136-145) Potassium Level 3.6mmol/L (3.5-5.1) Chloride Level 105mmol/L (98-107) Carbon Dioxide Level 25mmol/L (21-32) Anion Gap 9 (6-14) Blood Urea Nitrogen 15mg/dL (8-26) Creatinine 1.0mg/dL (0.7-1.3) Estimated GFR (Cockcroft-Gault) 75.0 Glucose Level 38mg/dL (70-99) Calcium Level 8.7mg/dL (8.5-10.1) Phosphorus Level 2.8mg/dL (2.6-4.7) Magnesium Level 2.1mg/dL (1.8-2.4) Creatine Kinase 3024U/L (39-308) Albumin 2.9g/dL (3.4-5.0) Glucose (Fingerstick) 87mg/dL (70-99) JAYSON PATEL MD Dec 05, 2016 11:36
[2016-12-05] MEDS: ENOXAPARIN 40 MG/0.4 ML DISP.SYRIN. SQ SCH (14:26)
[2016-12-05 14:52] VITALS: BP 137/79
[2016-12-05 19:00] VITALS: BP 146/90
[2016-12-05 23:00] VITALS: BP 144/82
[2016-12-06] MEDS: IV 1/2 NORMAL SALINE 1,000 ML IV SCH ×2 (02:09→12:30)
[2016-12-06 07:12] LABS: CALCIUM 9.1 mg/dL (8.5-10.1); CREATININE 0.8 mg/dL (0.7-1.3); PHOSPHORUS 3.8 mg/dL (2.6-4.7); POTASSIUM 4.1 mmol/L (3.5-5.1)
[2016-12-06 09:43] VITALS: BP 125/76
--- NOTE | 2016-12-06 11:42 | PDOC ---
PROGRESS NOTES Chief Complaint Chief Complaint 1. Hyponatremia 2. Hypokalemia 3. Rhabdomyolysis 4. Delirium and encephalopathy on admit, now improved 5. Obesity, BMI 31 6. Vasomotor nephropathy on admit History of Present Illness History of Present Illness AMS Resolved Physically weak, need PT/OT Pt wants to be discharged, feels well Possible D/C today if OK with renal VSS DW RN Vitals Vitals Vital Signs Date Time Temp Pulse Resp B/P Pulse Ox O2 Delivery O2 Flow Rate FiO2 12/06/16 09:43 99.3 88 16 125/76 99 Room Air 99.3 Physical Exam General: Alert, Oriented X3, No acute distress, Other Heart: Normal S1, Normal S2, No murmurs Lungs: Clear Abdomen: Normal bowel sounds, Soft, No tenderness (obese) Extremities: No clubbing, No edema Skin: No rashes, No breakdown, No significant lesion, Other Labs LABS Laboratory Tests Test 12/06/16 05:00 Sodium Level 142mmol/L (136-145) Potassium Level 4.1mmol/L (3.5-5.1) Chloride Level 108mmol/L (98-107) Carbon Dioxide Level 25mmol/L (21-32) Anion Gap 9 (6-14) Blood Urea Nitrogen 11mg/dL (8-26) Creatinine 0.8mg/dL (0.7-1.3) Estimated GFR (Cockcroft-Gault) 97.0 Glucose Level 97mg/dL (70-99) Calcium Level 9.1mg/dL (8.5-10.1) Phosphorus Level 3.8mg/dL (2.6-4.7) Magnesium Level 2.0mg/dL (1.8-2.4) Creatine Kinase 1855U/L (39-308) Albumin 3.0g/dL (3.4-5.0) Review of Systems Review of Systems Complains of fatigue Complains of hunger Assessment and Plan Assessmemt and Plan Problems Medical Problems: (1) Altered mental status Status: Acute (2) Hyponatremia Status: Acute (3) Lactic acidosis Status: Acute (4) Mental status change Status: Acute (5) Rhabdomyolysis Status: Acute Assessment: 1. Hyponatremia 2. Hypokalemia 3. Rhabdomyolysis 4. Delirium and encephalopathy on admit, now improved 5. Obesity, BMI 31 6. 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 Labs Laboratory Tests Test 12/05/16 04:15 12/05/16 07:18 12/06/16 05:00 Sodium Level 139mmol/L (136-145) 142mmol/L (136-145) Potassium Level 3.6mmol/L (3.5-5.1) 4.1mmol/L (3.5-5.1) Chloride Level 105mmol/L (98-107) 108mmol/L (98-107) Carbon Dioxide Level 25mmol/L (21-32) 25mmol/L (21-32) Anion Gap 9 (6-14) 9 (6-14) Blood Urea Nitrogen 15mg/dL (8-26) 11mg/dL (8-26) Creatinine 1.0mg/dL (0.7-1.3) 0.8mg/dL (0.7-1.3) Estimated GFR (Cockcroft-Gault) 75.0 97.0 Glucose Level 38mg/dL (70-99) 97mg/dL (70-99) Calcium Level 8.7mg/dL (8.5-10.1) 9.1mg/dL (8.5-10.1) Phosphorus Level 2.8mg/dL (2.6-4.7) 3.8mg/dL (2.6-4.7) Magnesium Level 2.1mg/dL (1.8-2.4) 2.0mg/dL (1.8-2.4) Creatine Kinase 3024U/L (39-308) 1855U/L (39-308) Albumin 2.9g/dL (3.4-5.0) 3.0g/dL (3.4-5.0) Glucose (Fingerstick) 87mg/dL (70-99) Laboratory Tests Test 12/06/16 05:00 Sodium Level 142mmol/L (136-145) Potassium Level 4.1mmol/L (3.5-5.1) Chloride Level 108mmol/L (98-107) Carbon Dioxide Level 25mmol/L (21-32) Anion Gap 9 (6-14) Blood Urea Nitrogen 11mg/dL (8-26) Creatinine 0.8mg/dL (0.7-1.3) Estimated GFR (Cockcroft-Gault) 97.0 Glucose Level 97mg/dL (70-99) Calcium Level 9.1mg/dL (8.5-10.1) Phosphorus Level 3.8mg/dL (2.6-4.7) Magnesium Level 2.0mg/dL (1.8-2.4) Creatine Kinase 1855U/L (39-308) Albumin 3.0g/dL (3.4-5.0) Microbiology 12/01/16 Blood Culture - Final, Complete NO GROWTH AFTER 5 DAYS Medications Current Medications Ondansetron HCl 4 mg 4 mg 1X ONCE IV Last administered on 12/01/16 10:55; Start 12/01/16 at 10:30; Stop 12/01/16 at 10:31; Status DC Sodium Chloride (Iv Sodium Chloride 0.9% 1000ml Bag) 1,000 ml @ 1,000 mls/hr 1X ONCE IV Last administered on 12/01/16 11:02; Start 12/01/16 at 11:00; Stop 12/01/16 at 11:59; Status DC Ondansetron HCl 4 mg 4 mg PRN Q8HRS PRN IV NAUSEA/VOMITING; Start 12/01/16 at 12 :15; Stop 12/02/16 at 12:14; Status DC Sodium Chloride 1,000 ml @ 150 mls/hr Q6H40M IV ; Start 12/01/16 at 12:09; Stop 12/01/16 at 15:01; Status DC Sodium Chloride (Iv Sodium Chloride 0.9% 1000ml Bag) 1,000 ml @ 1,000 mls/hr 1X ONCE IV Last administered on 12/01/16 13:00; Start 12/01/16 at 13:00; Stop 12/01/16 at 13:59; Status DC Enoxaparin Sodium (Lovenox Per Pharmacy Prophylaxis Dosing) 1 each PRN DAILY PRN MC SEE COMMENTS; Start 12/01/16 at 13:45; Stop 12/03/16 at 12:50; Status DC Enoxaparin Sodium 40 mg 40 mg Q24H SQ Last administered on 12/05/16 14:26; Start 12/01/16 at 14:00 Magnesium Sulfate/ Dextrose 50 ml @ 25 mls/hr PRN DAILY PRN IV for Mag < 1.7 on am labs; Start 12/01/16 at 13:45; Stop 12/03/16 at 12:50; Status DC Sodium Chloride 500 ml @ 0 mls/hr QID PRN IV UO< 30cc/hr over previous 6hrs; Start 12/01/16 at 14:00; Stop 12/01/16 at 15:01; Status DC Potassium Chloride 100 ml @ 100 mls/hr Q1H IV Last administered on 12/01/16 17 :09; Start 12/01/16 at 15:00; Stop 12/01/16 at 16:59; Status DC Sodium Chloride 1,000 ml @ 75 mls/hr [id number] IV ; Start 12/01/16 at 15:00; Stop 12/02/16 at 04:53; Status DC Magnesium Sulfate/ Dextrose 50 ml @ 25 mls/hr PRN DAILY PRN IV for Mag < 1.7 on am labs; Start 12/01/16 at 15:00 Potassium Chloride 50 ml @ 50 mls/hr PRN Q6HRS PRN IV For K < 3.7; Start at 15:00 Potassium Chloride 50 ml @ 50 mls/hr PRN Q2HR PRN IV total of 40mEq for K < 3.5; Start 12/01/16 at 15:00 Dextrose 1,000 ml @ 100 mls/hr Q10H IV Last administered on 12/01/16 23:52; Start 12/01/16 at 15:15; Stop 12/02/16 at 08:21; Status DC Lorazepam (Ativan) 1 mg PRN Q4HRS PRN PO ANXIETY / AGITATION; Start 12/01/16 at 18:15; Stop 12/01/16 at 18:15; Status DC Lorazepam (Ativan) 1 mg PRN Q4HRS PRN IV ANXIETY / AGITATION Last administered on 12/01/16 18:16; Start 12/01/16 at 18:15 Desmopressin Acetate 1 mcg 1 mcg BID IV Last administered on 12/01/16 21:24; Start 12/01/16 at 21:30; Stop 12/02/16 at 08:12; Status DC Potassium Phosphate 13.6 mmol/Sodium Chloride 104.5333 ml @ 52.267 m... Q2H IV Last administered on 12/02/16 13:48; Start 12/02/16 at 09:00; Stop 12/02/16 at 14:59; Status DC Sodium Chloride (Iv Sodium Chloride 0.45%) 1,000 ml @ 100 mls/hr Q10H IV Last administered on 12/06/16 02:09; Start 12/02/16 at 08:30 Potassium Chloride (Klor-Con) 20 meq 1X ONCE PO Last administered on 12/03/16 14:31; Start 12/03/16 at 13:30; Stop 12/03/16 at 13:31; Status DC Dextrose 25 gm 1X ONCE IV ; Start 12/05/16 at 07:30; Stop 12/05/16 at 07:31; Status DC Vitals/I & O Vital Sign - Last 24 Hours 12/05/16 12/05/16 12/05/16 12/05/16 14:52 19:00 20:00 23:00 Temp 98.8 98.1 98.1 98.8 98.1 98.1 Pulse 67 64 60 Resp 22 18 19 B/P 137/79 146/90 144/82 Pulse Ox 98 97 97 O2 Delivery Room Air Room Air Room Air Room Air 12/06/16 09:43 Temp 99.3 99.3 Pulse 88 Resp 16 B/P 125/76 Pulse Ox 99 O2 Delivery Room Air Intake and Output 12/05/16 12/05/16 12/06/16 15:00 23:00 07:00 Output Total 2250 ml Balance -2250 ml CECI YEBOAH K III DO Dec 06, 2016 11:42
[2016-12-06] MEDS ORDERED: TIOT18CA IH (12:22)
[2016-12-06] MEDS ORDERED: ENAL10TA PO (12:22)
[2016-12-06] MEDS ORDERED: ATOR10TA PO (12:22)
[2016-12-06 12:33] VITALS: BP 123/72
== END 2016-12-06 12:43 | disposition home or self-care (01) | DRG 682 ==
LOC: ER 09:43 → 1 WEST ICU 11:35 → 5 NORTH 12-02 15:00
PROVIDERS: ADMIT Internal Medicine; ATTEND Internal Medicine
DX: N17.0 Acute kidney failure with tubular necrosis (principal); G93.41 Metabolic encephalopathy; E87.1 Hypo-osmolality and hyponatremia; E87.2 Acidosis; M62.82 Rhabdomyolysis; E66.9 Obesity, unspecified; E78.00 Pure hypercholesterolemia, unspecified; E86.1 Hypovolemia; E87.6 Hypokalemia; E88.09 Other disorders of plasma-protein metabolism, not elsewhere classified; I12.9 Hypertensive chronic kidney disease with stage 1 through stage 4 chronic kidney disease, or unspecified chronic kidney disease; J44.9 Chronic obstructive pulmonary disease, unspecified; R63.1 Polydipsia; Z68.31 Body mass index [BMI] 31.0-31.9, adult; Z88.0 Allergy status to penicillin; N18.3 Chronic kidney disease, stage 3 (moderate)
CPT/HCPCS: 36415; 36600; 51702; 70450; 71010; 80048; 80069; 80076; 81001; 82140; 82550; 82805; 82947; 83605; 83735; 83880; 83930; 83935; 84132; 84295; 84300; 84484; 84550; 85007; 85027; 85610; 85730; 87040; 87641; 93005; 96361; 96374; G0481; J1650; J2060; J2405; J2597; J3480; J7030; 97116; 99285-25